=== PATIENT | male | born 1940 | race Caucasian/White ===

== ENCOUNTER → 2020-05-25 | Outpatient (CLI) | payer MEDICARE, OTHER ==
--- NOTE | 2020-05-25 13:52 | XRAY Report ---
PROCEDURE: Shoulder 3 View LT INDICATIONS: L SHOULDER PX TECHNIQUE: 3 views of the shoulder were acquired. COMPARISON: None. FINDINGS: Bones: Mild to moderate acromioclavicular joint and glenohumeral joint osteoarthritic changes are se en. No fractures or dislocations. No suspicious bony lesions. Visualized ribs appear intact. Soft tissues: No suspicious soft tissue calcifications. IMPRESSION: Mild to moderate left shoulder joint osteoarthritis. No fracture or dislocation. Reviewed by: Bry Farr MD on 05/25/2020 1:50 PM PST Approved by: Bry Farr MD on 05/25/2020 1:50 PM PST Station ID: [id number]
== END ==
LOC: DI.N 12:34
PROVIDERS: ATTEND Nurse Practitioner
DX: M19.012 Primary osteoarthritis, left shoulder (principal)

== ENCOUNTER 2020-05-30 20:47 | Outpatient (CLI) | payer MEDICARE, OTHER | END 2020-05-30 20:48 | disposition critical access hospital (66) | LOC: EMS 20:47 | PROVIDERS: ATTEND Surgery | DX: R51.9 Headache, unspecified (principal); R42 Dizziness and giddiness; R03.0 Elevated blood-pressure reading, without diagnosis of hypertension | CPT/HCPCS: A0425; A0429 ==

== ENCOUNTER 2020-05-30 21:43 | Emergency (ER) | payer MEDICARE, OTHER ==
--- NOTE | 2020-05-30 22:26 | ED Physician Documentation ---
History of Present Illness - Stated complaint Stated Complaint: HTN, AUGUST, DIZZY - Chief complaint Chief Complaint: Cardiac - History obtained from History obtained from: Patient, EMS - History of Present Illness Timing: Enter time (19:30), Today Improved by: rest Worsened by: no exacerbating factors - Additonal information Additional information: BIBA. patient c/o generalized headache, lightheadedness and nausea since 7:30 PM tonight. he says "my daughter checked my vitals" and "they were much higher". Asked to specify, he says his blood pressure was high on readings at home, although he says the readings were 110s over 90s. Review of Systems Constitutional: denies: Fever, Chills, Sweats Eyes: denies: Loss of vision, Decreased vision Cardiac: reports: Reviewed and negative Respiratory: reports: Reviewed and negative GI: reports: Nausea. denies: Abdominal Pain, Vomiting Musculoskeletal: denies: Neck pain, Back pain Neurologic: reports: Headache. denies: Generalized weakness, Focal weakness, Numbness PD PAST MEDICAL HISTORY - Past Medical History Past Medical History: Yes Cardiovascular: Atrial fibrillation Respiratory: COPD Neuro: None : Kidney stones HEENT: Other Other Past Medical History: sunus infections - Past Surgical History Past Surgical History: Yes General: Hiatal hernia repair Ortho: Spine surgery HEENT: Tonsil/Adenoidectomy - Present Medications Home Medications: Ambulatory Orders Medication Instructions Recorded Confirmed Calcium Carbonate [Calcium] 600 mg PO DAILY 05/30/20 05/30/20 Diazepam [Valium] 5 mg PO DAILY 05/30/20 05/30/20 Gabapentin [Neurontin] 600 mg PO TID 05/30/20 05/30/20 Methocarbamol [Robaxin-750] 750 mg PO TID 05/30/20 05/30/20 Montelukast [Singulair] 10 mg PO DAILY 05/30/20 05/30/20 Multivitamin 1 tab PO DAILY 05/30/20 05/30/20 Omeprazole Magnesium 20 mg PO DAILY 05/30/20 05/30/20 Rivaroxaban [Xarelto] 20 mg PO DAILY 05/30/20 05/30/20 Simvastatin [Zocor] 40 mg PO DAILY 05/30/20 05/30/20 diphenhydrAMINE [Benadryl] 50 mg PO DAILY 05/30/20 05/30/20 Ondansetron HCl [Zofran] 4 mg PO Q6HR PRN #14 tab 05/31/20 - Allergies Allergies/Adverse Reactions: Allergies Allergy/AdvReac Type Severity Reaction Status Date / Time Sulfa (Sulfonamide Allergy Unknown Verified 05/30/20 21:49 Antibiotics) - Social History Does the pt smoke?: No Smoking Status: Former smoker Does the pt drink ETOH?: Yes ETOH Use: Beer Does the pt have substance abuse?: No - Immunizations Immunizations are current?: Yes PD ED PE NORMAL - Vitals Vital signs reviewed: Yes - General General: Alert and oriented X 3, No acute distress, Well developed/nourished - HEENT HEENT: PERRL, EOMI, Moist mucous membranes - Neck Neck: Supple, no meningeal sign - Cardiac Cardiac: No murmur - Respiratory Respiratory: No respiratory distress, Clear bilaterally - Abdomen Abdomen: Soft, Non tender, Non distended - Derm Derm: Normal color, Warm and dry - Extremities Extremities: No edema - Neuro Neuro: Alert and oriented X 3, senior information security consultant 2-12 intact, No motor deficit, No sensory deficit, Normal speech Eye Opening: Spontaneous Motor: Obeys Commands Verbal: Oriented GCS Score: 15 PD ED PE EXPANDED - Cardiac Cardiac: Regular Rate, Irregularly irregular Results - Vitals Vitals: Oxygen O2 Source Room air - EKG (time done) No standard instances Rate: Rate (enter#) (82) Rhythm: Atrial fibrillation [place]: Normal QRS: Normal Ischemia: Normal ST segments - Labs Labs: Laboratory Tests 05/30/20 05/30/20 05/30/20 22:23 22:23 22:23 WBC 9.9 RBC 4.65 L Hgb 14.2 Hct 43.9 MCV 94.4 H MCH 30.5 MCHC 32.3 RDW 13.5 Plt Count 242 MPV 9.4 Neut # (Auto) 7.5 H Lymph # (Auto) 1.3 L [place] # (Auto) 0.7 Eos # (Auto) 0.4 Baso # (Auto) 0.1 Absolute Nucleated RBC 0.00 Nucleated RBC % 0.0 PT 13.9 H INR 1.3 H Sodium 139 Potassium 4.2 Chloride 102 Carbon Dioxide 26 Anion Gap 11.0 BUN 30 H Creatinine 1.0 Estimated GFR (MDRD) 72 L Glucose 107 H Calcium 8.6 Total Bilirubin 0.4 AST 26 ALT 23 Alkaline Phosphatase 86 Total Protein 6.9 Albumin 3.7 Globulin 3.2 Albumin/Globulin Ratio 1.2 PD MEDICAL DECISION MAKING - ED course Complexity details: reviewed results, re-evaluated patient, considered toña romo, d/w patient ED course: on reevaluation, after IV fluids, IV zofran, and PO tylenol, patient reports feeling much improved. His blood tests are unremarkable and reassuring and his blood pressures were normotensive by end of ED stay Departure - Departure Disposition: 01 Home, Self Care Clinical Impression: Dizziness Headache Qualifiers: Headache type: unspecified Headache chronicity pattern: acute headache Intractability: not intractable Qualified Code(s): R51.9 - Headache, unspecified Hypertension Qualifiers: Hypertension type: essential hypertension Qualified Code(s): I10 - Essential (primary) hypertension Condition: Good Instructions: ED Dizziness UKO, ED Cephalgia Unspecified, ED HTN Established Follow-Up: Star Tejada MD [Primary Care Provider] - Prescriptions: Ondansetron HCl [Zofran] 4 mg PO Q6HR PRN #14 tab PRN Reason: Nausea / Vomiting Discharge Date/Time: 05/31/20 01:33
[2020-05-30 22:28] LABS: BASOPHILS # (AUTO) 0.1 10^3/uL (0.0-0.1); BASOPHILS % (AUTO) 0.5 %; EOSINOPHILS # (AUTO) 0.4 10^3/uL (0.0-0.7); EOSINOPHILS % (AUTO) 3.6 %; HCT - HEMATOCRIT 43.9 % (42.0-52.0); HGB - HEMOGLOBIN 14.2 g/dL (14.0-18.0); LYMPHOCYTES # (AUTO) 1.3 10^3/uL (1.5-3.5); LYMPHOCYTES % (AUTO) 13.2 %; MEAN CORPUSCULAR HEMOGLOBIN 30.5 pg (27.0-31.0); MEAN CORPUSCULAR HGB CONC 32.3 g/dL (32.0-36.0); MEAN CORPUSCULAR VOLUME 94.4 fL (80.0-94.0); MEAN PLATELET VOLUME 9.4 fL (7.4-11.4); MONOCYTES # (AUTO) 0.7 10^3/uL (0.0-1.0); MONOCYTES % (AUTO) 6.7 %; NEUTROPHILS # (AUTO) 7.5 10^3/uL (1.5-6.6); NEUTROPHILS % (AUTO) 75.6 %; PLT - PLATELET COUNT 242 10^3/uL (130-450); RED BLOOD COUNT 4.65 10^6/uL (4.70-6.10); RED CELL DISTRIBUTION WIDTH 13.5 % (12.0-15.0); WHITE BLOOD COUNT 9.9 x10^3/uL (4.8-10.8)
[2020-05-30 22:35] LABS: INR 1.3 (0.8-1.2); PT - PROTHROMBIN TIME 13.9 secs (9.9-12.6)
[2020-05-30 22:41] LABS: ALBUMIN 3.7 g/dL (3.2-5.5); ALBUMIN/GLOBULIN RATIO 1.2 (1.0-2.2); BILIRUBIN,TOTAL 0.4 mg/dL (0.2-1.0); CALCIUM 8.6 mg/dL (8.5-10.3); POTASSIUM 4.2 mmol/L (3.5-5.0); TOTAL PROTEIN 6.9 g/dL (6.7-8.2)
[2020-05-30] MEDS ORDERED: SODIUM CHLORIDE 0.9% 1,000 ML IV STA (22:56)
[2020-05-30] MEDS ORDERED: ONDANSETRON 4 MG/2 ML VIAL IVP STA (22:56)
[2020-05-31 01:33] VITALS: BP 132/68
== END 2020-05-31 01:33 | disposition home or self-care (01) ==
LOC: EDUNIT# → ED 21:43
DX: R42 Dizziness and giddiness (principal); R51.9 Headache, unspecified; R11.0 Nausea; I10 Essential (primary) hypertension; I48.91 Unspecified atrial fibrillation; Z79.01 Long term (current) use of anticoagulants; J44.9 Chronic obstructive pulmonary disease, unspecified; Z87.891 Personal history of nicotine dependence
CPT/HCPCS: 36415; 80053; 85025; 85610; 93005; 96361; 96374; 99284

== ENCOUNTER 2020-06-09 10:44 | Outpatient (CLI) | payer MEDICARE, OTHER ==
[2020-06-09 11:56] VITALS: BP 114/83
--- NOTE | 2020-06-09 11:56 | SLEEP CARE CONSULTATION ---
Information from patient questionnaire entered by Stormy Carroll. I have reviewed and concur with the information entered by Stormy Carroll. This document represents the service I personally performed and the decisions made by me, Marilin Thacker ARNP. History of Present Illness Service Date and Time: 06/09/2020 1044 Reason for Visit: New patient, Previously diagnosed sleep apnea, sleep apnea on CPAP therapy Accompanied by: Spouse Chief Complaint: reports: Snoring, Excessive daytime sleepiness, Observed pauses in breathing, Fatigue Date of Onset: about 6 years Usual bedtime: 9:30 - 10 pm Time it takes to fall asleep: 5-30 minutes Snores at night: Yes Observed to quit breathing while asleep: Yes Sleeps alone due to snoring: No Number of times waking at night: maybe 1 Reasons for waking at night: reports: Bathroom Toss, Turn, or Twitch while sleeping: No Recalls having dreams: No (unsure) Usually gets out of bed at: 7:30-8:30 am Feels refreshed in the morning: Yes (mostly) Morning headache: Yes (sometimes) Sleepy or fatigued during the day: Yes Ever fallen asleep while driving: Yes Takes day naps: Yes Dreams during day naps: No (unsure) Prior sleep studies: Yes Year and Where: [facility] in [place], [place] Additional HPI information: ROXANE MCCAULEY was diagnosed to have unknown, AHI unknown, obstructive sleep apnea-hypopnea syndrome and comes in today with spouse to establish care for his CPAP therapy. He continues to have some snoring nightly and occasionally observed pauses in breathing and daily fatigue. He just moved here locally about a month ago. - Parasomnia Symptoms Ever been unable to move upon waking from sleep: No Walks in sleep: No Talks in sleep: No Ever acted out dreams in sleep: No Ever felt weak in the knees when startled or emotional: No Bothered by creepy, crawly, restless sensations in legs: No Problems with memory or concentration: Yes CPAP Compliance Data - Data Reviewed with Patient Average duration of nightly device use: 6 hr 54 min Compliance rate %: 91 (180 days) Current pressure setting (cmH2O): 8 Humidity settin Average residual AHI: 1.0 Compliance data discussion: He is a 6 year user of the CPAP machine. He is using a nasal cushion mask but would like to try a full face mask and has a prescription for this to get it changed. He is using [employer] for his DME, they are new to him and has not yet received supplies from them. He last time he changed his cushion was within the last month. Subjective Missed days of use due to: reports: other (moving) Patient concerns: reports: dry mouth, nose, throat (dry mouth often). denies: aerophagia, mask discomfort, air blowing in eyes, mask leak noise, condensation in mask/hose, nasal congestion, epistaxis, other Observed to snore while using device: Yes Current pressure setting perceived as: comfortable On therapy, patient: reports: sleeping better, awakening more refreshed, being more awake and alert during the day, more rested overall. denies: drowsiness while driving Initial [place] Sleepiness Scale score: 14 (in 2019) Past Medical History Past Medical History: reports: Arrythmia (Atrial fibrillation), Impotence, GERD, Other (COPD, A-Fib). denies: Hypertension, Diabetes, Anemia, Anxiety, Depression Social History The patient's occupation is a Retired. Patient is and lives in [place]. Have you smoked in the past 12 months: No Cigarettes per day (20/pack): 20 Years of smokin (or more) Quit date: 2008 Smoking Pack Years: 40.0 Alcohol use: Yes Alcohol amount and frequency: 1 drink per week Caffeine use: Yes Caffeine amount and frequency: 2-3 cups a day Family History Family Hx Sleep Apnea: Father: Snoring, Sibling: Snoring Allergies and Home Medications Drug allergies reviewed: Yes (Sulfa, Latex) Home medication list reviewed: Yes Allergy and home medication list: Xarelto Montelukast Methocarbomal Simvastatin Calcium Omeprazole Gabapentin Diazepam Benadryl OTC stool softener OTC laxative 50+ Men Multivitamin Spiriva asmanex azelastine Striverdi Respimat Albuterol Fluticasone Review of Systems Weight gain over past 5 years: 5 Weight loss over past 5 years: unsure Cardiovascular: reports: irregular heart rate or pulse. denies: high blood pressure Respiratory: reports: shortness of breath, wheeze Gastrointestinal: reports: difficulty swallowing (sometimes), nausea (sometimes) Urinary: reports: impotence Neurological: denies: headaches Psychiatric: denies: anxiety, depression Ear/Nose/Throat: reports: sinus problems, dry mouth/throat, tonsillectomy, w isdom teeth removed Musculoskeletal: reports: neck pain, back pain, muscle pain or cramping (leg) Physical Exam Blood Pressure: 114/83 Cuff size: wrist Heart Rate: 75 O2 Saturation: 97 Height: 5 ft 3 in Weight: 175 lb Body Mass Index: 30.9 BMI Classification: Obese Nostrils: patent to airflow Mouth and throat: narrow oropharynx Soft palate: long Uvula visualization: 50% Mallampati Class II Tongue: normal in size Tonsils: absent bilaterally Heart: irregular rhythm Lungs: clear bilaterally Impression and Plan 1. Obstructive Sleep Apnea-Hypopnea Syndrome, unknown, with good treatment compliance and good apnea control. On CPAP therapy, the patient has better sleep quality and is more rested overall. We have requested his sleep study but do not have it to reference during this visit. Patient asked to bring in copy if he has it. We would have to repeat sleep study if unable to obtain a copy. He voiced understanding. He has a script from his previous sleep provider to try a full face mask since he has trouble with mask leaking when sleeping on his side. Mask leaks predominately from when patient sleeps on their side can be reduced by using a CPAP pillow. This and other styles can be purchased online. Patient voiced understanding. Patient is snoring when using his machine. To resolve snore, the CPAP pressure will be changed to 9 cmH20. Patient advised to contact this office if pressure change uncomfortable or if pressure change does not resolve snore. He has also had some mouth dryness. Oral dryness can be reduced by adjusting humidity setting higher or heated hose lower or by adjusting both settings. Patient's apnea severity and rationale for treatment to reduce apnea, improve sleep quality and reduce cardiovascular and cerebrovascular events was reviewed. I also reviewed the benefit of consistent device use of CPAP for arrhythmia and gastric reflux. * Obtain copy of previous sleep study * Continue with previous prescription to try a full face mask * Change auto CPAP pressure to 9 cmH2O to reduce snoring when using machine * Notify me if snoring with mask or feeling that the pressure is too much or too little * Call this office if any problems using CPAP * Return for follow up in 1-2 months, or sooner if concerns arise Counseling Topics: Spare mask Visit Type: In Office Time Spent with Patient (minutes): 32 Provider Statement: I spent 100% of the Face to Face Visit with the patient with greater than 50% spent counseling the patient and coordination of care.
== END 2020-06-09 10:45 | disposition home or self-care (01) ==
LOC: SC 10:44
PROVIDERS: ATTEND Nurse Practitioner Family
DX: G47.33 Obstructive sleep apnea (adult) (pediatric) (principal); E66.9 Obesity, unspecified; Z68.30 Body mass index [BMI] 30.0-30.9, adult
CPT/HCPCS: 99203; G0463; 99212

== ENCOUNTER 2020-09-12 10:22 | Outpatient (CLI) | payer MEDICARE, OTHER ==
[2020-09-12 11:05] LABS: MUDS CUTOFF CONCENTRATIONS CUTOFF CONC BELOW:
[2020-09-12 11:55] LABS: AMPHETAMINE SCREEN,URINE NEGATIVE (NEGATIVE); BARBITURATE SCREEN,UR NEGATIVE (NEGATIVE); BENZODIAZEPINES SCREEN, URINE POSITIVE (NEGATIVE); COCAINE SCREEN URINE NEGATIVE (NEGATIVE); METHADONE SCREEN, URINE NEGATIVE (NEGATIVE); METHAMPHETAMINES SCREEN, URINE NEGATIVE (NEGATIVE); OPIATE SCREEN, URINE NEGATIVE (NEGATIVE); OXYCODONE SCREEN, URINE POSITIVE (NEGATIVE); PROPOXYPHENE SCREEN, URINE NEGATIVE (NEGATIVE); THC CANNABINOID SCREEN, URINE NEGATIVE (NEGATIVE); TRICYCLIC ANTIDEPRESSANT,URINE NEGATIVE (NEGATIVE)
== END 2020-09-12 10:23 | disposition home or self-care (01) ==
LOC: LAB 10:22
PROVIDERS: ATTEND Family Medicine
DX: Z79.899 Other long term (current) drug therapy (principal)
CPT/HCPCS: 80306

== ENCOUNTER 2021-12-20 10:14 | Emergency (ER) | payer MEDICARE, OTHER ==
[2021-12-20 10:34] LABS: BASOPHILS # (AUTO) 0.1 10^3/uL (0.0-0.1); EOSINOPHILS # (AUTO) 0.3 10^3/uL (0.0-0.7); EOSINOPHILS % (AUTO) 4.1 %; HCT - HEMATOCRIT 47.7 % (42.0-52.0); HGB - HEMOGLOBIN 15.9 g/dL (14.0-18.0); LYMPHOCYTES # (AUTO) 1.1 10^3/uL (1.5-3.5); LYMPHOCYTES % (AUTO) 17.3 %; MEAN CORPUSCULAR HEMOGLOBIN 31.6 pg (27.0-31.0); MEAN CORPUSCULAR HGB CONC 33.3 g/dL (32.0-36.0); MEAN CORPUSCULAR VOLUME 94.8 fL (80.0-94.0); MEAN PLATELET VOLUME 9.9 fL (7.4-11.4); MONOCYTES # (AUTO) 0.5 10^3/uL (0.0-1.0); MONOCYTES % (AUTO) 7.9 %; NEUTROPHILS # (AUTO) 4.2 10^3/uL (1.5-6.6); NEUTROPHILS % (AUTO) 69.5 %; PLT - PLATELET COUNT 221 10^3/uL (130-450); RED BLOOD COUNT 5.03 10^6/uL (4.70-6.10); RED CELL DISTRIBUTION WIDTH 13.3 % (12.0-15.0); WHITE BLOOD COUNT 6.1 x10^3/uL (4.8-10.8)
[2021-12-20 10:47] LABS: ALBUMIN 4.3 g/dL (3.2-5.5); ALBUMIN/GLOBULIN RATIO 1.5 (1.0-2.2); BILIRUBIN,TOTAL 0.9 mg/dL (0.2-1.0); CALCIUM 9.2 mg/dL (8.5-10.3); CREATININE 1.3 mg/dL (0.6-1.2); POTASSIUM 4.6 mmol/L (3.5-5.0); TOTAL PROTEIN 7.2 g/dL (6.7-8.2)
[2021-12-20] MEDS ORDERED: KETOROLAC 30 MG/ML VIAL IVP STA (12:56)
[2021-12-20] MEDS ORDERED: HYDROmorphone 0.5 MG/0.5 ML SYRINGE IVP STA ×2 (12:57→14:19)
--- NOTE | 2021-12-20 13:47 | CT Report ---
PROCEDURE: Abdomen/Pelvis WO INDICATIONS: R flank pain TECHNIQUE: Noncontrast 5 mm thick sections acquired from the diaphragms to the symphysis. 5 mm coronal and sagi ttal reformats were then performed. For radiation dose reduction, the following was used: automated exposure control, adjustment of mA and/or kV according to patient size. COMPARISON: CT chest dated 11/29/2021. FINDINGS: Image quality: Diagnostic. ABDOMEN: Lung bases: Stable subcentimeter left lower lobe pulmonary nodule. Bibasilar atelectasis. Heart size is normal. Atherosclerotic calcifications of the coronary arteries. Solid organs: Liver and spleen are normal in size. Gallbladder is unremarkable. Pancreas is normal in contours. No peripancreatic inflammation. No adrenal nodules. Kidneys are normal in size, witho ut hydronephrosis or nephrolithiasis. Bilateral ureters are normal in course and caliber. Peritoneum and bowel: Unenhanced bowel loops demonstrate normal wall thickness and caliber. No free fluid or air. Scattered colonic diverticulosis without acute diverticulitis. Nodes and vessels: No retroperitoneal or mesenteric adenopathy by size criteria. Aorta and inferior vena cava are normal in caliber. Scattered atherosclerotic calcifications. Miscellaneous: Fat-containing umbilical hernia without acute inflammation. PELVIS: Genitourinary: Bladder wall thickness is normal. Moderately distended urinary bladder. Miscellaneous: No inguinal hernias or adenopathy. Penile prosthesis is visualized. Bones: No suspicious bony lesions. No acute vertebral body compression fractures. Postsurgical hilda nges from prior lumbar fusion from L2 through S1. IMPRESSION: 1. CT abdomen and pelvis without acute abnormalities. Specifically, no evidence for renal stones or h ydronephrosis. The appendix is not definitively visualized. However, no secondary findings for acute inflammation noted in the right lower quadrant. 2. Atherosclerosis. 3. Colonic diverticulosis without acute diverticulitis. 4. Redemonstration of subcentimeter left lower lobe pulmonary nodule. Recommend follow-up CT in 12 mo nths to document continued stability. Other chronic findings as above Reviewed by: Cesar Gómez MD on 12/20/2021 1:46 PM PDT Approved by: Cesar Gómez MD on 12/20/2021 1:46 PM PDT Station ID: [id number]
--- NOTE | 2021-12-20 14:11 | ED Physician Documentation ---
History of Present Illness - Stated complaint Stated Complaint: MALE /BACK PX - Chief complaint Chief Complaint: Back Pain - History obtained from History obtained from: Patient, Family - Additonal information Additional information: The patient comes to the emergency department with chief complaint of right- sided back pain that started several days ago. He states it hurts a lot to move and he is concerned that he may have a kidney stone again. He denies any direct trauma. He states he has not been doing anything that seems unusual. He normally works in his garden a lot, but does not feel that he has done anything unusual to his back. No other complaints at this time. No loss of bowel or bladder control. No numbness or tingling in his legs. No dysuria or hematuria. He does have a history of back surgery with titanium plates in his lumbar spine, but is very active. Review of Systems Ten Systems: 10 systems reviewed and negative Constitutional: reports: Reviewed and negative Eyes: reports: Reviewed and negative Ears: reports: Reviewed and negative Nose: reports: Reviewed and negative Throat: reports: Reviewed and negative Cardiac: reports: Reviewed and negative Respiratory: reports: Reviewed and negative GI: reports: Reviewed and negative : reports: Reviewed and negative Skin: reports: Reviewed and negative Musculoskeletal: reports: Back pain Neurologic: reports: Reviewed and negative Psychiatric: reports: Reviewed and negative Endocrine: reports: Reviewed and negative Immunocompromised: reports: Reviewed and negative PD PAST MEDICAL HISTORY - Past Medical History Past Medical History: Yes Cardiovascular: Atrial fibrillation Respiratory: COPD Neuro: None : Kidney stones HEENT: Other - Past Surgical History Past Surgical History: Yes General: Hiatal hernia repair Ortho: Spine surgery HEENT: Tonsil/Adenoidectomy - Present Medications Home Medications: Ambulatory Orders Medication Instructions Recorded Confirmed Calcium Carbonate [Calcium] 600 mg PO DAILY 05/30/20 05/30/20 Diazepam [Valium] 5 mg PO DAILY 05/30/20 05/30/20 Gabapentin [Neurontin] 600 mg PO TID 05/30/20 05/30/20 Montelukast [Singulair] 10 mg PO DAILY 05/30/20 05/30/20 Multivitamin 1 tab PO DAILY 05/30/20 05/30/20 Omeprazole Magnesium 20 mg PO DAILY 05/30/20 05/30/20 Rivaroxaban [Xarelto] 20 mg PO DAILY 05/30/20 05/30/20 Simvastatin [Zocor] 40 mg PO DAILY 05/30/20 05/30/20 diphenhydrAMINE [Benadryl] 50 mg PO DAILY 05/30/20 05/30/20 methocarbamoL [Robaxin-750] 750 mg PO TID 05/30/20 05/30/20 ondansetron HCL [Zofran] 4 mg PO Q6HR PRN #14 tab 05/31/20 Cyclobenzaprine [Flexeril] 10 mg PO TID PRN #20 tablet 12/20/21 HYDROcod/ACETAM 5/325 [[place]bo[place] 5/325] 1 - 2 tablet PO Q6H PRN #14 tablet 12/20/21 - Allergies Allergies/Adverse Reactions: Allergies Allergy/AdvReac Type Severity Reaction Status Date / Time Sulfa (Sulfonamide Allergy Unknown Verified 12/20/21 10:20 Antibiotics) - Social History Does the pt smoke?: No Smoking Status: Never smoker Does the pt drink ETOH?: Yes Does the pt have substance abuse?: No - Immunizations Immunizations are current?: Yes - POLST Patient has POLST: No PD ED PE NORMAL - Vitals Vital signs reviewed: Yes - General General: Alert and oriented X 3, No acute distress, Well developed/nourished - HEENT HEENT: Atraumatic, PERRL, EOMI, Moist mucous membranes - Neck Neck: Supple, no meningeal sign - Cardiac Cardiac: RRR, No murmur - Respiratory Respiratory: No respiratory distress, Clear bilaterally - Abdomen Abdomen: Soft, Non tender, Non distended - Back Back: No CVA TTP, No spinal TTP, Other (Tenderness palpation right lumbar paraspinal musculature. Tenderness decreases with increasingly lateral location.) - Derm Derm: Normal color, Warm and dry, No rash - Extremities Extremities: No deformity - Neuro Neuro: Alert and oriented X 3 - Psych Psych: Normal mood, Normal affect Results - Vitals Vitals: Vital Signs - 24 hr 12/20/21 10:16 Temperature 36.2 C L Heart Rate 75 Respiratory 18 Rate Blood Pressure 142/62 H O2 Saturation 97 Oxygen O2 Source Room air - Labs Labs: Laboratory Tests 12/20/21 12/20/21 10:28 10:28 WBC 6.1 RBC 5.03 Hgb 15.9 Hct 47.7 MCV 94.8 H MCH 31.6 H MCHC 33.3 RDW 13.3 Plt Count 221 MPV 9.9 Neut # (Auto) 4.2 Lymph # (Auto) 1.1 L [place] # (Auto) 0.5 Eos # (Auto) 0.3 Baso # (Auto) 0.1 Absolute Nucleated RBC 0.00 Nucleated RBC % 0.0 Sodium 142 Potassium 4.6 Chloride 105 Carbon Dioxide 29 Anion Gap 8.0 BUN 27 H Creatinine 1.3 H Estimated GFR (MDRD) 53 L Glucose 154 H Calcium 9.2 Total Bilirubin 0.9 AST 25 ALT 21 Alkaline Phosphatase 89 Total Protein 7.2 Albumin 4.3 Globulin 2.9 Albumin/Globulin Ratio 1.5 Lipase 28 - Rads (name of study) CT abdomen and pelvis Radiology: Final report received, EMP read indepedently, See rad report (No acute findings) PD MEDICAL DECISION MAKING - ED course Complexity details: reviewed results, re-evaluated patient, considered differential, d/w patient, d/w family ED course: Patient was treated symptomatically with Toradol and Dilaudid. His CT scan was unremarkable for acute findings, and specifically negative for kidney stone. We discussed that his back pain is more likely musculoskeletal in nature. We have discussed symptomatic management at home and the usual indications for return. Departure - Departure Disposition: 01 Home, Self Care Clinical Impression: Musculoskeletal back pain Condition: Stable Instructions: ED Spasm Back No Trauma, ED Neck Back Pain General Prescriptions: Cyclobenzaprine [Flexeril] 10 mg PO TID PRN #20 tablet PRN Reason: Spasms HYDROcod/ACETAM 5/325 [[place]bo[place] 5/325] 1 - 2 tablet PO Q6H PRN #14 tablet PRN Reason: Pain Comments: Your CT scan does not show any evidence of kidney stones. You have existing low back arthritis and surgical changes but no evidence of a serious condition. Given your muscle tenderness and Worse pain with movement, your pain seems to be more consistent with musculoskeletal cause than with an internal cause. You may take the medications prescribed as needed, as well as ibuprofen. Please follow- up with your primary care physician if you are not feeling better in the next 1 to 2 weeks. Your prescriptions have been electronically transmitted to [facility] pharmacy in [place].
[2021-12-20 14:23] VITALS: BP 121/75
== END 2021-12-20 14:36 | disposition home or self-care (01) ==
LOC: ED 10:14
DX: M54.50 Low back pain, unspecified (principal)
CPT/HCPCS: 36415; 74176; 80053; 83690; 85025; 96374; 96375; 96376; 99283; 99284; J1170

== ENCOUNTER 2022-03-08 17:36 | Emergency (ER) | payer MEDICARE, OTHER ==
[2022-03-08 17:48] VITALS: BP 134/71
[2022-03-08] MEDS ORDERED: ACETAMINOPHEN 500 MG TABLET PO STA (17:58)
--- NOTE | 2022-03-08 17:59 | ED Physician Documentation ---
PD HPI HEAD INJURY - Stated complaint Stated Complaint: FALL - Chief complaint Chief Complaint: Trauma Hd/Nk - History obtained from History obtained from: Patient, Family - Additional information Additional information: 81-year-old gentleman on Eliquis for atrial fibrillation had a piece of furniture part way and couple of pounds fall in the top of his head about an hour ago while he was working outside. No loss of consciousness. He has minimal headache. No other injuries. He is here today with his . Review of Systems Constitutional: reports: Reviewed and negative Throat: reports: Reviewed and negative Cardiac: reports: Reviewed and negative PD PAST MEDICAL HISTORY - Past Medical History Cardiovascular: Atrial fibrillation Respiratory: COPD Neuro: None : Kidney stones HEENT: Other - Past Surgical History Past Surgical History: Yes General: Hiatal hernia repair Ortho: Spine surgery HEENT: Tonsil/Adenoidectomy - Present Medications Home Medications: Ambulatory Orders Medication Instructions Recorded Confirmed Calcium Carbonate [Calcium] 600 mg PO DAILY 05/30/20 05/30/20 Diazepam [Valium] 5 mg PO DAILY 05/30/20 05/30/20 Gabapentin [Neurontin] 600 mg PO TID 05/30/20 05/30/20 Montelukast [Singulair] 10 mg PO DAILY 05/30/20 05/30/20 Multivitamin 1 tab PO DAILY 05/30/20 05/30/20 Omeprazole Magnesium 20 mg PO DAILY 05/30/20 05/30/20 Rivaroxaban [Xarelto] 20 mg PO DAILY 05/30/20 05/30/20 Simvastatin [Zocor] 40 mg PO DAILY 05/30/20 05/30/20 diphenhydrAMINE [Benadryl] 50 mg PO DAILY 05/30/20 05/30/20 methocarbamoL [Robaxin-750] 750 mg PO TID 05/30/20 05/30/20 ondansetron HCL [Zofran] 4 mg PO Q6HR PRN #14 tab 05/31/20 Cyclobenzaprine [Flexeril] 10 mg PO TID PRN #20 tablet 12/20/21 HYDROcod/ACETAM 5/325 [[place] 5/325] 1 - 2 tablet PO Q6H PRN #14 tablet 12/20/21 - Allergies Allergies/Adverse Reactions: Allergies Allergy/AdvReac Type Severity Reaction Status Date / Time Sulfa (Sulfonamide Allergy Unknown Verified 03/08/22 17:48 Antibiotics) - Social History Does the pt smoke?: No Smoking Status: Never smoker Does the pt drink ETOH?: Yes Does the pt have substance abuse?: No - Immunizations Immunizations are current?: Yes - POLST Patient has POLST: No PD ED PE NORMAL - Vitals Vital signs reviewed: Yes - General General: Alert and oriented X 3, No acute distress - HEENT HEENT: PERRL, EOMI, Other (There is a very small hematoma pretty close to the vertex of his scalp) - Neck Neck: No bony TTP - Neuro Neuro: Alert and oriented X 3, recreational leader 2-12 intact, No motor deficit, No sensory deficit, Normal speech Eye Opening: Spontaneous Motor: Obeys Commands Verbal: Oriented GCS Score: 15 Results - Vitals Vitals: Vital Signs - 24 hr 03/08/22 17:42 Temperature 36.8 C Heart Rate 85 Respiratory 18 Rate Blood Pressure 134/71 H O2 Saturation 97 Oxygen O2 Source Room air - Rads (name of study) CT of the head is unremarkable Radiology: EMP read contemporaneously Departure - Departure Disposition: 01 Home, Self Care Clinical Impression: Adequate anticoagulation on anticoagulant therapy Scalp contusion Qualifiers: Encounter type: initial encounter Qualified Code(s): S00.03XA - Contusion of scalp, initial encounter Condition: Good Record reviewed to determine appropriate education?: Yes Instructions: ED Head Injury Closed
--- NOTE | 2022-03-08 18:25 | CT Report ---
PROCEDURE: HEAD WO INDICATIONS: Head injury TECHNIQUE: Noncontrast 4.5 mm thick angled axial sections acquired from the foramen magnum to the vertex. For r adiation dose reduction, the following was used: automated exposure control, adjustment of mA and/or kV according to patient size. COMPARISON: None. FINDINGS: Image quality: Excellent. CSF spaces: Basal cisterns are patent. No extra-axial fluid collections. Ventricles are normal in size and shape. Brain: No midline shift. No intracranial masses or hemorrhage. Soriano-white matter interface is norm al. Skull and face: Calvarium and visualized facial bones are intact, without suspicious lesions. Sinuses: Visualized sinuses and mastoids are clear. IMPRESSION: No acute intracranial finding. Reviewed by: Clark Kemp MD on 03/08/2022 6:24 PM PDT Approved by: Clark Kemp MD on 03/08/2022 6:24 PM PDT Station ID: [id number]
== END 2022-03-08 18:43 | disposition home or self-care (01) ==
LOC: ED 17:36
DX: S00.03XA Contusion of scalp, initial encounter (principal); W20.8XXA Other cause of strike by thrown, projected or falling object, initial encounter; I48.91 Unspecified atrial fibrillation; Z79.01 Long term (current) use of anticoagulants; J44.9 Chronic obstructive pulmonary disease, unspecified
CPT/HCPCS: 70450; 99282; 99284; A9270

== ENCOUNTER 2022-07-24 11:39 | Emergency (ER) | payer MEDICARE, OTHER ==
--- NOTE | 2022-07-24 12:25 | XRAY Report ---
PROCEDURE: Chest 1 View X-Ray INDICATIONS: Chest pain TECHNIQUE: One view of the chest was acquired. COMPARISON: CT chest dated 11/29/2021. FINDINGS: Surgical changes and devices: Fixation hardware in visualized lumbar spine is seen. Lungs and pleura: No pleural effusions or pneumothorax. Lungs are clear. Mediastinum: Mediastinal contours appear normal. Heart size is normal. Bones and chest wall: No suspicious bony lesions. Overlying soft tissues appear unremarkable. IMPRESSION: No acute cardiopulmonary pathology. Reviewed by: Bry Farr MD on 07/24/2022 12:24 PM PST Approved by: Bry Farr MD on 07/24/2022 12:24 PM PST Station ID: [id number]
[2022-07-24 12:39] LABS: BASOPHILS # (AUTO) 0.1 10^3/uL (0.0-0.1); BASOPHILS % (AUTO) 0.3 %; EOSINOPHILS % (AUTO) 0.3 %; HCT - HEMATOCRIT 46.4 % (42.0-52.0); LYMPHOCYTES % (AUTO) 6.5 %; MEAN CORPUSCULAR HEMOGLOBIN 30.7 pg (27.0-31.0); MEAN CORPUSCULAR HGB CONC 32.3 g/dL (32.0-36.0); MEAN CORPUSCULAR VOLUME 95.1 fL (80.0-94.0); MEAN PLATELET VOLUME 9.5 fL (7.4-11.4); MONOCYTES # (AUTO) 0.8 10^3/uL (0.0-1.0); MONOCYTES % (AUTO) 5.3 %; NEUTROPHILS # (AUTO) 13.4 10^3/uL (1.5-6.6); NEUTROPHILS % (AUTO) 87.4 %; PLT - PLATELET COUNT 233 10^3/uL (130-450); RED BLOOD COUNT 4.88 10^6/uL (4.70-6.10); RED CELL DISTRIBUTION WIDTH 13.5 % (12.0-15.0); WHITE BLOOD COUNT 15.4 x10^3/uL (4.8-10.8)
[2022-07-24 12:57] LABS: ALBUMIN 3.8 g/dL (3.2-5.5); ALBUMIN/GLOBULIN RATIO 1.1 (1.0-2.2); BILIRUBIN,TOTAL 0.6 mg/dL (0.2-1.0); CALCIUM 8.5 mg/dL (8.5-10.3); CREATININE 1.1 mg/dL (0.6-1.2); POTASSIUM 4.3 mmol/L (3.5-5.0); TOTAL PROTEIN 7.2 g/dL (6.7-8.2)
[2022-07-24] MEDS ORDERED: AMOX/CLAV 875 MG/125 MG TABLET PO STA (14:01)
--- NOTE | 2022-07-24 14:03 | ED Physician Documentation ---
History of Present Illness - Stated complaint Stated Complaint: SOA - Chief complaint Chief Complaint: Resp - History obtained from History obtained from: Patient, Family - Additonal information Additional information: 81-year-old gentleman with history of COPD and A-fib has been fatigued all week, but today started having shaking chills and fever up to 102. He has chronic bronchitis and wonders if he might have pneumonia. He denies rash, urinary complaints, pedal edema or calf pain, abdominal pain or sore throat. He checked himself for COVID this morning and it was negative at home. He is here with his daughter. PD PAST MEDICAL HISTORY - Past Medical History Cardiovascular: Atrial fibrillation Respiratory: COPD Neuro: None : Kidney stones HEENT: Other - Past Surgical History Past Surgical History: Yes General: Hiatal hernia repair Ortho: Spine surgery HEENT: Tonsil/Adenoidectomy - Present Medications Home Medications: Ambulatory Orders Medication Instructions Recorded Confirmed Calcium Carbonate [Calcium] 600 mg PO DAILY 05/30/20 05/30/20 Diazepam [Valium] 5 mg PO DAILY 05/30/20 05/30/20 Gabapentin [Neurontin] 600 mg PO TID 05/30/20 05/30/20 Montelukast [Singulair] 10 mg PO DAILY 05/30/20 05/30/20 Multivitamin 1 tab PO DAILY 05/30/20 05/30/20 Omeprazole Magnesium 20 mg PO DAILY 05/30/20 05/30/20 Rivaroxaban [Xarelto] 20 mg PO DAILY 05/30/20 05/30/20 Simvastatin [Zocor] 40 mg PO DAILY 05/30/20 05/30/20 diphenhydrAMINE [Benadryl] 50 mg PO DAILY 05/30/20 05/30/20 methocarbamoL [Robaxin-750] 750 mg PO TID 05/30/20 05/30/20 ondansetron HCL [Zofran] 4 mg PO Q6HR PRN #14 tab 05/31/20 Cyclobenzaprine [Flexeril] 10 mg PO TID PRN #20 tablet 12/20/21 HYDROcod/ACETAM 5/325 [[place] 5/325] 1 - 2 tablet PO Q6H PRN #14 tablet 12/20/21 Amox/Clav 875/125 [Augmentin] 1 each PO Q12H #20 tablet 07/24/22 - Allergies Allergies/Adverse Reactions: Allergies Allergy/AdvReac Type Severity Reaction Status Date / Time latex Allergy Unknown Verified 07/24/22 11:57 Sulfa (Sulfonamide Allergy Unknown Verified 03/08/22 17:48 Antibiotics) - Social History Does the pt smoke?: No Smoking Status: Never smoker Does the pt drink ETOH?: Yes Does the pt have substance abuse?: No - Immunizations Immunizations are current?: Yes - POLST Patient has POLST: No PD ED PE NORMAL - Vitals Vital signs reviewed: Yes - General General: Alert and oriented X 3, No acute distress - HEENT HEENT: PERRL, Pharynx benign, Dentition benign - Neck Neck: Supple, no meningeal sign, No bony TTP - Cardiac Cardiac: RRR, No murmur - Respiratory Respiratory: Other (Mild expiratory wheezes, nonlabored, no respiratory distress.) - Abdomen Abdomen: Non tender - Back Back: No CVA TTP, No spinal TTP - Derm Derm: Normal color, Warm and dry - Extremities Extremities: No edema, No calf tenderness / cord - Neuro Neuro: Alert and oriented X 3, Normal speech Results - Vitals Vitals: Vital Signs - 24 hr 07/24/22 11:51 Heart Rate 74 Respiratory 24 Rate Blood Pressure 122/59 L O2 Saturation 95 Oxygen O2 Source Room air - Labs Labs: Laboratory Tests 07/24/22 07/24/22 07/24/22 12:35 12:35 12:35 WBC 15.4 H RBC 4.88 Hgb 15.0 Hct 46.4 MCV 95.1 H MCH 30.7 MCHC 32.3 RDW 13.5 Plt Count 233 MPV 9.5 Neut # (Auto) 13.4 H Lymph # (Auto) 1.0 L [place] # (Auto) 0.8 Eos # (Auto) 0.0 Baso # (Auto) 0.1 Absolute Nucleated RBC 0.00 Nucleated RBC % 0.0 Sodium 138 Potassium 4.3 Chloride 99 L Carbon Dioxide 27 Anion Gap 12.0 BUN 23 H Creatinine 1.1 Estimated GFR (MDRD) 64 L Glucose 93 Calcium 8.5 Total Bilirubin 0.6 AST 25 ALT 22 Alkaline Phosphatase 82 Troponin I High Sens 6.0 Total Protein 7.2 Albumin 3.8 Globulin 3.4 Albumin/Globulin Ratio 1.1 Lipase 27 - Rads (name of study) Single view chest x-ray is unremarkable Radiology: Final report received, EMP read indepedently PD Medical Decision Making - ED course ED course: 81-year-old gentleman with probably a COPD exacerbation with fever. Other causes of infection such as intra-abdominal issue, UTI were screened by history without pertinent positive historical findings suggestive of any of those. He is having some ongoing upper chest pressure but that is not new with negative biomarkers. Departure - Departure Disposition: 01 Home, Self Care Clinical Impression: Bronchitis Condition: Good Record reviewed to determine appropriate education?: Yes Instructions: ED COPD Flare Prescriptions: Amox/Clav 875/125 [Augmentin] 1 each PO Q12H #20 tablet Comments: Return or follow-up with your doctor in 2 days if not better, return for new or worsening symptoms.
[2022-07-24 14:12] VITALS: BP 101/57
== END 2022-07-24 14:22 | disposition home or self-care (01) ==
LOC: ED 11:39
DX: J40 Bronchitis, not specified as acute or chronic (principal); I48.91 Unspecified atrial fibrillation; Z79.01 Long term (current) use of anticoagulants
CPT/HCPCS: 36415; 71045; 80053; 83690; 84484; 85025; 93005; 99284; A9270

== ENCOUNTER 2022-08-01 08:12 | Outpatient (CLI) | payer MEDICARE, OTHER ==
[2022-08-01 08:30] LABS: BASOPHILS # (AUTO) 0.1 10^3/uL (0.0-0.1); BASOPHILS % (AUTO) 0.9 %; EOSINOPHILS # (AUTO) 0.4 10^3/uL (0.0-0.7); EOSINOPHILS % (AUTO) 5.3 %; HCT - HEMATOCRIT 44.7 % (42.0-52.0); HGB - HEMOGLOBIN 14.6 g/dL (14.0-18.0); LYMPHOCYTES # (AUTO) 1.4 10^3/uL (1.5-3.5); LYMPHOCYTES % (AUTO) 16.7 %; MEAN CORPUSCULAR HGB CONC 32.7 g/dL (32.0-36.0); MEAN CORPUSCULAR VOLUME 94.9 fL (80.0-94.0); MEAN PLATELET VOLUME 9.4 fL (7.4-11.4); MONOCYTES # (AUTO) 0.6 10^3/uL (0.0-1.0); MONOCYTES % (AUTO) 7.9 %; NEUTROPHILS # (AUTO) 5.6 10^3/uL (1.5-6.6); NEUTROPHILS % (AUTO) 68.8 %; PLT - PLATELET COUNT 260 10^3/uL (130-450); RED BLOOD COUNT 4.71 10^6/uL (4.70-6.10); RED CELL DISTRIBUTION WIDTH 13.3 % (12.0-15.0); WHITE BLOOD COUNT 8.1 x10^3/uL (4.8-10.8)
[2022-08-01 08:43] LABS: ALBUMIN 3.8 g/dL (3.2-5.5); ALBUMIN/GLOBULIN RATIO 1.2 (1.0-2.2); ALKALINE PHOSPHATASE 75 IU/L (42-121); ALT ALANINE AMINOTRANSFERASE 25 IU/L (10-60); AST ASPARTATE AMINOTRANSFERASE 25 IU/L (10-42); BILIRUBIN,TOTAL 0.6 mg/dL (0.2-1.0); BUN - BLOOD UREA NITROGEN 19 mg/dL (6-20); CALCIUM 9.2 mg/dL (8.5-10.3); CARBON DIOXIDE - CO2 26 mmol/L (21-32); CHLORIDE 109 mmol/L (101-111); CHOL/HDL RATIO 3.4 (<5.0); CHOLESTEROL 143 mg/dL; CREATININE 1.2 mg/dL (0.6-1.2); GFR - MDRD 58 (>89); GLUCOSE 107 mg/dL (70-100); HDL CHOLESTEROL 42 mg/dL; LDL CHOLESTEROL,CALCULATED 80 mg/dL; LDL/HDL RATIO 1.9 (<3.6); POTASSIUM 4.1 mmol/L (3.5-5.0); SODIUM 144 mmol/L (135-145); TOTAL PROTEIN 7.1 g/dL (6.7-8.2); TRIGLYCERIDES 106 mg/dL; VLDL CHOLESTEROL 21 mg/dL
[2022-08-01 08:55] LABS: THYROID STIMULATING HORMONE 1.86 uIU/mL (0.34-5.60)
[2022-08-01 11:25] LABS: ESTIMATED AVERAGE GLUCOSE 134 mg/dL (70-100); HEMOGLOBIN A1c% 6.3 % (4.27-6.07)
== END 2022-08-01 08:13 | disposition home or self-care (01) ==
LOC: LAB 08:12
PROVIDERS: ATTEND Internal Medicine Cardiovascular Disease
DX: I48.91 Unspecified atrial fibrillation (principal); E78.5 Hyperlipidemia, unspecified; Z13.1 Encounter for screening for diabetes mellitus; Z86.39 Personal history of other endocrine, nutritional and metabolic disease; E83.42 Hypomagnesemia
CPT/HCPCS: 36415; 80053; 80061; 83036; 83721; 83735; 84443; 85025

== ENCOUNTER 2023-01-29 11:16 | Emergency (ER) | payer MEDICARE, OTHER ==
[2023-01-29 11:30] VITALS: BP 122/63; O2SAT 94
--- OUTSIDE RECORDS SUMMARY | 2023-01-29 12:01 | EXTERNAL MEDICAL SUMMARY RPT | Continuity of Care Document ---
Author Name Unknown Address [address] [phone] Phone Organization [facility] Address [address] [phone] Phone Results/Labs test date facility value unit notes
--- NOTE | 2023-01-29 13:22 | Ultrasound Report ---
PROCEDURE: Duplex Ext Veins Right INDICATIONS: right calf pain/swelling TECHNIQUE: Real-time imaging, as well as color and pulse Doppler interrogation, were performed of the lower extr emity deep veins from the inguinal ligament to the popliteal fossa. Attempted visualization of the ca lf veins was performed. COMPARISON: None. FINDINGS: The deep veins are normally compressible, and free of intraluminal thrombus. Color and pu lse Doppler demonstrate normal phasic intraluminal flow. There is normal augmentation response to di stal compression maneuver. IMPRESSION: No deep venous thrombosis of the visualized lower extremity. Reviewed by: Dani Cedillo on 01/29/2023 1:21 PM PDT Approved by: Dani Cedillo on 01/29/2023 1:21 PM PDT Station ID: [id number]
--- NOTE | 2023-01-29 13:43 | ED Physician Documentation ---
PD HPI LOWER EXT INJURY - Stated complaint Stated Complaint: RT KNEE SWELLING/PX - Chief complaint Chief Complaint: Ext Problem - History obtained from History obtained from: Patient - History of Present Illness PD HPI LOW EXT INJURY LOCATION: Right, Knee Type of injury: No: Fall, Twist, Blunt / blow, Penetrating / stab / GSW, Laceration, Puncture wound, Foreign body, Crush, Burn, Other Where injury occurred: Home PD PAST MEDICAL HISTORY - Past Medical History Cardiovascular: Atrial fibrillation Respiratory: COPD Neuro: None : Kidney stones HEENT: Other - Past Surgical History Past Surgical History: Yes General: Hiatal hernia repair Ortho: Spine surgery HEENT: Tonsil/Adenoidectomy - Present Medications Home Medications: Ambulatory Orders Medication Instructions Recorded Confirmed Calcium Carbonate [Calcium] 600 mg PO DAILY 05/30/20 05/30/20 Diazepam [Valium] 5 mg PO DAILY 05/30/20 05/30/20 Gabapentin [Neurontin] 600 mg PO TID 05/30/20 05/30/20 Montelukast [Singulair] 10 mg PO DAILY 05/30/20 05/30/20 Multivitamin 1 tab PO DAILY 05/30/20 05/30/20 Omeprazole Magnesium 20 mg PO DAILY 05/30/20 05/30/20 Rivaroxaban [Xarelto] 20 mg PO DAILY 05/30/20 05/30/20 Simvastatin [Zocor] 40 mg PO DAILY 05/30/20 05/30/20 diphenhydrAMINE [Benadryl] 50 mg PO DAILY 05/30/20 05/30/20 methocarbamoL [Robaxin-750] 750 mg PO TID 05/30/20 05/30/20 ondansetron HCL [Zofran] 4 mg PO Q6HR PRN #14 tab 05/31/20 Cyclobenzaprine [Flexeril] 10 mg PO TID PRN #20 tablet 12/20/21 HYDROcod/ACETAM 5/325 [[place] 5/325] 1 - 2 tablet PO Q6H PRN #14 tablet 12/20/21 Amox/Clav 875/125 [Augmentin] 1 each PO Q12H #20 tablet 07/24/22 - Allergies Allergies/Adverse Reactions: Allergies Allergy/AdvReac Type Severity Reaction Status Date / Time latex Allergy Unknown Verified 01/29/23 11:24 Sulfa (Sulfonamide Allergy Unknown Verified 01/29/23 11:24 Antibiotics) - Social History Does the pt smoke?: No Smoking Status: Never smoker Does the pt drink ETOH?: Yes Does the pt have substance abuse?: No - Immunizations Immunizations are current?: Yes - POLST Patient has POLST: No PD ED PE NORMAL - Vitals Vital signs reviewed: Yes - General General: Alert and oriented X 3, No acute distress, Well developed/nourished - Respiratory Respiratory: No respiratory distress, Clear bilaterally - Abdomen Abdomen: Normal bowel sounds, Non tender - Neuro Neuro: No motor deficit, No sensory deficit (purple mildly tender spotsleftl.) Results - Vitals Vitals: Vital Signs - 24 hr 01/29/23 11:24 Temperature 36.5 C Heart Rate 65 Respiratory 18 Rate Blood Pressure 122/63 O2 Saturation 94 Oxygen O2 Source Room air - Rads (name of study) duplex US Relevant Findings:: Prelim report reviewed, Other (US Tech - no DVT) Departure - Departure Disposition: 01 Home, Self Care Clinical Impression: Strain of knee and leg, right Qualifiers: Encounter type: initial encounter Qualified Code(s): S86.911A - Strain of unspecified muscle(s) and tendon(s) at lower leg level, right leg, initial encounter Condition: Stable Record reviewed to determine appropriate education?: Yes Follow-Up: Chevy Nazario MD [Primary Care Provider] - Comments: Your ultrasound is negative for blood clots. On exam I do not get the sense of this being a meniscal/cartilage or the main ligaments of the knee such as the collaterals or cruciates. It sounds more likely a strain of some of the muscles around the knee such as the hamstring. We can try to help this with the hinged knee brace to support some of the muscles and ligaments. Use it when up and around for the next 1-1 and half weeks. Tylenol every 4-6 hours if needed for pains. Continue your other usual medicines. Follow-up with your primary care if not improved over the next 7 to 10 days. Forms: PCP List Discharge Date/Time: 01/29/23 14:50
== END 2023-01-29 14:50 | disposition home or self-care (01) ==
LOC: ED 11:16
DX: S86.911A Strain of unspecified muscle(s) and tendon(s) at lower leg level, right leg, initial encounter (principal); X58.XXXA Exposure to other specified factors, initial encounter
CPT/HCPCS: 99283; 99284

== ENCOUNTER 2023-03-18 13:30 | Outpatient (CLI) | payer MEDICARE, OTHER ==
--- NOTE | 2023-03-18 20:36 | XRAY Report ---
PROCEDURE: Lumbar Spine 2 View INDICATIONS: LOW BACK PAIN TECHNIQUE: 3 view(s) of the lumbar spine were acquired. COMPARISON: None. FINDINGS: Bones: Advanced decreased osseous mineralization present. Moderate to fecal debris in the right colo n. Vertebral body height and alignment is maintained. Instrumented interbody fusion is noted from L2 through S1. L1 wedge-shaped anterior compression fracture without retropulsed fracture fragment. No e vidence of hardware failure or loosening. Soft tissues: Atherosclerotic calcification of the abdominal aorta without evidence of aneurysm. IMPRESSION: Instrumented discectomy and fusion at L2-S1. No evidence of hardware failure or loosening. Osteopenic L1 compression fracture without significant retropulsed fracture fragment Reviewed by: Sudhir Kimble MD on 03/18/2023 7:34 PM [facility] Approved by: Sudhir Kimble MD on 03/18/2023 7:34 PM [facility]ISE Station ID: [id number]
== END 2023-03-18 13:31 | disposition home or self-care (01) ==
LOC: DI 13:30
PROVIDERS: ATTEND Internal Medicine
DX: M48.56XA Collapsed vertebra, not elsewhere classified, lumbar region, initial encounter for fracture (principal); M85.88 Other specified disorders of bone density and structure, other site; Z98.1 Arthrodesis status

== ENCOUNTER 2023-05-14 16:08 | Emergency (ER) | payer MEDICARE, OTHER ==
[2023-05-14 16:36] VITALS: O2SAT 96
[2023-05-14] MEDS ORDERED: BUFFERED LIDOCAINE 10 ML SYRINGE SUBQ STA (18:28)
--- NOTE | 2023-05-14 18:36 | ED Physician Documentation ---
History of Present Illness - Stated complaint Stated Complaint: STAPLE IN R FINGER - Chief complaint Chief Complaint: Trauma Ext - History obtained from History obtained from: Patient, Family - History of Present Illness Timing: Today Pain level max: 5 Pain level now: 5 - Additonal information Additional information: 82-year-old male presents to the emergency department with a stable to the right fifth digit, palmar aspect. He states he did not notice that he accidentally stapled his finger he felt like he could not straighten his finger like his usual trigger finger, but when he could not extend it he looked down and saw the staple. Last tetanus shot was February 2020. No numbness or tingling. He took oxycodone in the waiting room that he brought from home. Review of Systems Constitutional: denies: Fever, Chills PD PAST MEDICAL HISTORY - Past Medical History Past Medical History: Yes Cardiovascular: Atrial fibrillation Respiratory: COPD Neuro: None Endocrine/Autoimmune: None GI: GERD : Kidney stones HEENT: Other Psych: None Musculoskeletal: Osteoarthritis, Chronic back pain Derm: None - Past Surgical History Past Surgical History: Yes General: Hiatal hernia repair Ortho: Spine surgery HEENT: Tonsil/Adenoidectomy - Present Medications Home Medications: Ambulatory Orders Medication Instructions Recorded Confirmed Calcium Carbonate [Calcium] 600 mg PO DAILY 05/30/20 05/30/20 Gabapentin [Neurontin] 600 mg PO TID 05/30/20 05/30/20 Montelukast [Singulair] 10 mg PO DAILY 05/30/20 05/30/20 Multivitamin 1 tab PO DAILY 05/30/20 05/30/20 Omeprazole Magnesium 20 mg PO DAILY 05/30/20 05/30/20 Rivaroxaban [Xarelto] 20 mg PO DAILY 05/30/20 05/30/20 Simvastatin [Zocor] 40 mg PO DAILY 05/30/20 05/30/20 diazePAM [Valium] 5 mg PO DAILY 05/30/20 05/30/20 diphenhydrAMINE [Benadryl] 50 mg PO DAILY 05/30/20 05/30/20 methocarbamoL [Robaxin-750] 750 mg PO TID 05/30/20 05/30/20 ondansetron HCL [Zofran] 4 mg PO Q6HR PRN #14 tab 05/31/20 Cyclobenzaprine [Flexeril] 10 mg PO TID PRN #20 tablet 12/20/21 HYDROcod/ACETAM 5/325 [[place] 5/325] 1 - 2 tablet PO Q6H PRN #14 tablet 12/20/21 Amox/Clav 875/125 [Augmentin] 1 each PO Q12H #20 tablet 07/24/22 cephALEXin [Keflex] 500 mg PO Q6H #28 cap 05/14/23 - Allergies Allergies/Adverse Reactions: Allergies Allergy/AdvReac Type Severity Reaction Status Date / Time latex Allergy Unknown Verified 05/14/23 16:23 Sulfa (Sulfonamide Allergy Unknown Verified 05/14/23 16:23 Antibiotics) - Social History Does the pt smoke?: No Smoking Status: Never smoker Does the pt drink ETOH?: Yes Does the pt have substance abuse?: No - Immunizations Immunizations are current?: No Immunizations: TDAP >10years/unknown - POLST Patient has POLST: No PD ED PE NORMAL - Vitals Vital signs reviewed: Yes - General General: Alert and oriented X 3 - HEENT HEENT: Moist mucous membranes - Neck Neck: Supple, no meningeal sign - Respiratory Respiratory: No respiratory distress - Derm Derm: Warm and dry - Extremities Extremities: Other (R hand - There is a staple located at the PIP joint of the right fifth digit. Spans the joint. Finger is contractured. Neurovascular intact.) - Neuro Neuro: Alert and oriented X 3 Results - Vitals Vitals: Vital Signs - 24 hr 05/14/23 05/14/23 16:23 20:16 Temperature 37 C Heart Rate 77 70 Respiratory 18 15 Rate Blood Pressure 157/91 H 156/95 H O2 Saturation 96 96 Oxygen O2 Source Room air - Rads (name of study) Right hand x-ray Relevant Findings:: Final report received, See rad report Procedures - FB removal FB location: Other (Right fifth digit) FB removal preparation: Local anesthesia-specify (Buffered lidocaine) Removal method: Other (Staple removal kit) FB removal aftercare: No complications, Patient tolerated well, Removed successfully PD Medical Decision Making - ED course Complexity details: reviewed results, re-evaluated patient, considered differential, d/w patient, d/w family ED course: 82-year-old male with a stable accidentally shot into the right fifth digit. Area was anesthetized with lidocaine. The staple was then removed in 1 piece. There are 2 small puncture wounds. Postextraction x-ray does not show any acute abnormalities. Neurovascularly intact. Brisk cap refill. Placed on Keflex. Tetanus up-to-date. Wound was cleansed and bandaged. Warnings of infection and instructions on wound care given at bedside. Patient and family counseled regarding signs and symptoms for which I believe and urgent re-evaluation would be necessary. Patient with good understanding of and agreement to plan and is comfortable going home at this time This document was made in part using voice recognition software. While efforts are made to proofread this document, sound alike and grammatical errors may occur. Departure - Departure Disposition: 01 Home, Self Care Clinical Impression: Foreign body in soft tissue, Puncture wound Condition: Good Instructions: ED Wound Puncture General Follow-Up: Chevy Nazario MD [Primary Care Provider] - Within 3 Days Prescriptions: cephALEXin [Keflex] 500 mg PO Q6H #28 cap Comments: Your antibiotics were sent to [facility] in [place]. Take all anitbiotics until gone. Please follow-up with your doctor for a wound check at the end of this week. Keep the wound clean. Change the dressing daily. You can take off the splint after 1 to 2 days. Please return for redness, swelling or drainage from the wound. Forms: PCP List Discharge Date/Time: 05/14/23 20:17
[2023-05-14] MEDS ORDERED: cephALEXin 250 MG CAPSULE PO STA (18:59)
--- NOTE | 2023-05-14 19:24 | XRAY Report ---
PROCEDURE: Finger(s) RT INDICATIONS: s/p fb staple removal TECHNIQUE: AP hand, 2 views of the fifth finger(s) acquired. COMPARISON: None. FINDINGS: Bones: No fractures or dislocations. No suspicious bony lesions. Soft tissues: No suspicious soft tissue calcifications or masses. IMPRESSION: No radiopaque foreign body. Reviewed by: Leonard Jackman MD on 05/14/2023 7:23 PM [facility] Approved by: Leonard Jackman MD on 05/14/2023 7:23 PM [facility] Station ID: [id number]
[2023-05-14] MEDS ORDERED: BACITRACIN ZINC OINT 1 PACKET TOP STA (19:44)
[2023-05-14 20:19] VITALS: BP 156/95
== END 2023-05-14 20:17 | disposition home or self-care (01) ==
LOC: ED 16:08
DX: S61.246A Puncture wound with foreign body of right little finger without damage to nail, initial encounter (principal); X58.XXXA Exposure to other specified factors, initial encounter; I48.91 Unspecified atrial fibrillation; Z79.01 Long term (current) use of anticoagulants
CPT/HCPCS: 73140; 99283; A9270

== ENCOUNTER 2023-06-05 10:25 | Outpatient (CLI) | payer MEDICARE, OTHER ==
--- NOTE | 2023-06-05 13:53 | XRAY Report ---
PROCEDURE: Hip w/Pelvis 2-3V RT INDICATIONS: RIGHT HIP PAIN TECHNIQUE: 3 views of the hip were acquired. COMPARISON: None. FINDINGS: Bones: No fractures or dislocations. No suspicious bony lesions. Lower lumbar fusion is present. Moderate to severe bilateral degenerative hip joint space narrowing. Minimal particular osteophytes. No erosions. Soft tissues: No suspicious soft tissue calcifications or masses. IMPRESSION: Moderate bilateral hip arthritic change. Reviewed by: Geri Hurtado MD on 06/05/2023 1:52 PM PST Approved by: Geri Hurtado MD on 06/05/2023 1:52 PM PST Station ID: [id number]
== END 2023-06-05 10:26 | disposition home or self-care (01) ==
LOC: DI 10:25
PROVIDERS: ATTEND Student in an Organized Health Care Education/Training Program
DX: M16.0 Bilateral primary osteoarthritis of hip (principal)

== ENCOUNTER 2023-07-09 10:33 | Outpatient (CLI) | payer MEDICARE ==
--- NOTE | 2023-07-09 14:49 | XRAY Report ---
PROCEDURE: Chest 2V INDICATIONS: COUGH TECHNIQUE: 2 views of the chest were acquired. COMPARISON: Chest x-ray, 07/16/2022. FINDINGS: Surgical changes and devices: None. Lungs and pleura: Blunting of the right costophrenic angle may be secondary to pleural scarring or s mall pleural effusion. No pneumothorax. . Mediastinum: Mediastinal contours appear normal. Heart size is normal. Bones and chest wall: Old right sixth rib fracture is noted. No suspicious bony lesions. Overlying soft tissues appear unremarkable. IMPRESSION: 1. Blunting of the right costophrenic angle may be secondary to changes effusion or pleural scarring. Reviewed by: Phoenix Mayo MD on 07/09/2023 2:48 PM PST Approved by: Phoenix Mayo MD on 07/09/2023 2:48 PM PST Station ID: [id number]
== END 2023-07-09 10:34 | disposition home or self-care (01) ==
LOC: DI 10:33
PROVIDERS: ATTEND Student in an Organized Health Care Education/Training Program
DX: R05.9 Cough, unspecified (principal)

== ENCOUNTER 2023-09-01 23:18 | Emergency (ER) | payer MEDICARE ==
--- NOTE | 2023-09-02 00:54 | ED Physician Documentation ---
History of Present Illness - Stated complaint Stated Complaint: SOA/GEN WEAKNESS - Chief complaint Chief Complaint: Resp - History obtained from History obtained from: Patient, Family (daugther of patient) - Additonal information Additional information: Patient c/o 2-3 days of gradually worsening LADD, cough productive of thick yellow-colored sputum. He has had gradually worsening generalized weakness over past 1-2 days. Tonight he developed chills and daughter measured patient's temperature with 101 result. She gave patient tylenol and bring him to ED for evaluation. Patient has COPD but does not use supplemental oxygen at home. h/o similar symptoms and had similar [facility] ED presentation last May (2022) with unremarkble w/u, prescribed augmentin. Patient and his daughter recall he had resolution of these symptoms within 2-3 days of starting the augmentin. Patient lives with daughter and she has had similar URI symtpoms recently as well as other members of the same household. Review of Systems Constitutional: reports: Fever, Chills, Fatigue, Sweats Cardiac: reports: Other (mild chest tightness across upper anterior chest x 1-2 days) Respiratory: reports: Dyspnea, Cough. denies: Hemoptysis, Wheezing GI: reports: Reviewed and negative PD PAST MEDICAL HISTORY - Past Medical History Past Medical History: Yes Cardiovascular: Atrial fibrillation Respiratory: COPD Neuro: None Endocrine/Autoimmune: None GI: GERD : Kidney stones HEENT: Other Psych: None Musculoskeletal: Osteoarthritis, Chronic back pain Derm: None - Past Surgical History Past Surgical History: Yes General: Hiatal hernia repair Ortho: Spine surgery HEENT: Tonsil/Adenoidectomy - Present Medications Home Medications: Ambulatory Orders Medication Instructions Recorded Confirmed Gabapentin [Neurontin] 600 mg PO TID 05/30/20 09/02/23 Montelukast [Singulair] 10 mg PO DAILY 05/30/20 09/02/23 Omeprazole Magnesium 20 mg PO DAILY 05/30/20 09/02/23 Simvastatin [Zocor] 40 mg PO DAILY 05/30/20 09/02/23 diazePAM [Valium] 5 mg PO DAILY 05/30/20 09/02/23 diphenhydrAMINE [Benadryl] 50 mg PO HS 05/30/20 09/02/23 methocarbamoL [Robaxin-750] 750 mg PO TID 05/30/20 09/02/23 Albuterol Sulfate [Proair 90 mcg IH Q4HR PRN 09/02/23 09/02/23 Digihaler] Amox/Clav 875/125 [Augmentin 1 tablet PO Q12H 7 Days #14 tablet 09/02/23 875/125 Tab] Apixaban [Eliquis] 5 mg PO BID 09/02/23 09/02/23 Azelastine HCl 1 spray NS BID 09/02/23 09/02/23 Docusate Sodium 100Mg Capsule 200 mg PO HS 09/02/23 09/02/23 [Colace 100Mg Capsule] Guaifenesin/Dextromethorphan 1 each PO BID 09/02/23 09/02/23 [Mucinex Dm ER 600-30 mg Tablet] Mometasone Furoate [Asmanex] 220 mcg IH DAILY 09/02/23 09/02/23 Olodaterol HCl [Striverdi Respimat] 4 gm IH BID 09/02/23 09/02/23 Oxycodone HCl/Acetaminophen 1 each PO TIDWM PRN 09/02/23 09/02/23 [Oxycodone-Acetaminophen 5-325] Tiotropium [place] [Spiriva] 1 puffs INH DAILY 09/02/23 09/02/23 - Allergies Allergies/Adverse Reactions: Allergies Allergy/AdvReac Type Severity Reaction Status Date / Time latex Allergy Unknown Verified 09/01/23 23:20 Sulfa (Sulfonamide Allergy Unknown Verified 09/01/23 23:20 Antibiotics) - Social History Does the pt smoke?: No Smoking Status: Never smoker Does the pt drink ETOH?: Yes Does the pt have substance abuse?: No - Immunizations Immunizations are current?: No Immunizations: TDAP >10years/unknown - POLST Patient has POLST: No PD ED PE NORMAL - Vitals Vital signs reviewed: Yes - General General: Alert and oriented X 3, No acute distress, Well developed/nourished - Respiratory Respiratory: No respiratory distress - Derm Derm: Normal color, Warm and dry - Extremities Extremities: No edema PD ED PE EXPANDED - Cardiac Cardiac: Irregularly irregular - Respiratory Respiratory: Other (scattered rhonchi bilaterally, more pronounced bilateral bases. slightly diminished breath sounds bilaterally without wheezing) Results - Vitals Vitals: Vital Signs - 24 hr 0409/02/23 09/02/23 23:21 01:35 02:40 Temperature 37.1 C Heart Rate 85 88 69 Respiratory 16 18 18 Rate Blood Pressure 140/75 H 117/62 O2 Saturation 92 91 L Oxygen O2 Source Room air - EKG (time done) No standard instances EKG releavant findings:: EKG personally interpreted by author of this note. Relevant findings are: Rate: Rate (enter#) (67) Rhythm: Atrial fibrillation - Labs Labs: Laboratory Tests 09/01/23 09/02/23 09/02/23 23:34 01:36 01:36 WBC 10.6 RBC 4.43 L Hgb 13.6 L Hct 42.9 MCV 96.8 H MCH 30.7 MCHC 31.7 L RDW 13.3 Plt Count 196 MPV 9.5 Neut # (Auto) 8.8 H Lymph # (Auto) 1.1 L Boyle # (Auto) 0.5 Eos # (Auto) 0.2 Baso # (Auto) 0.0 Absolute Nucleated RBC 0.00 Nucleated RBC % 0.0 Sodium Potassium Chloride Carbon Dioxide Anion Gap BUN Creatinine Estimated GFR (MDRD) Glucose Calcium Troponin I High Sens B-Natriuretic Peptide 173 H Nasal Adenovirus (PCR) NOT DETECTED Nasal B. parapertussis DNA (PCR) NOT DETECTED Nasal Coronavir 229E PCR NOT DETECTED Nasal Coronavir HKU1 PCR NOT DETECTED Nasal Coronavir NL63 PCR NOT DETECTED Nasal Coronavir OC43 PCR NOT DETECTED Nasal Enterovir/Rhinovir PCR NOT DETECTED Nasal Influenza B PCR NOT DETECTED Nasal Influenza A PCR NOT DETECTED Nasal Parainfluen 1 PCR NOT DETECTED Nasal Parainfluen 2 PCR NOT DETECTED Nasal Parainfluen 3 PCR NOT DETECTED Nasal Parainfluen 4 PCR NOT DETECTED Nasal RSV (PCR) NOT DETECTED Nasal B.pertussis DNA PCR NOT DETECTED Nasal C.pneumoniae (PCR) NOT DETECTED Sergo Human Metapneumo PCR NOT DETECTED Nasal M.pneumoniae (PCR) NOT DETECTED Nasal SARS-CoV-2 (PCR) NOT DETECTED 09/02/23 09/02/23 01:36 01:36 WBC RBC Hgb Hct MCV MCH MCHC RDW Plt Count MPV Neut # (Auto) Lymph # (Auto) Boyle # (Auto) Eos # (Auto) Baso # (Auto) Absolute Nucleated RBC Nucleated RBC % Sodium 138 Potassium 4.3 Chloride 106 Carbon Dioxide 27 Anion Gap 5.0 L BUN 18 Creatinine 1.1 Estimated GFR (MDRD) 64 L Glucose 120 H Calcium 8.4 L Troponin I High Sens 5.6 B-Natriuretic Peptide Nasal Adenovirus (PCR) Nasal B. parapertussis DNA (PCR) Nasal Coronavir 229E PCR Nasal Coronavir HKU1 PCR Nasal Coronavir NL63 PCR Nasal Coronavir OC43 PCR Nasal Enterovir/Rhinovir PCR Nasal Influenza B PCR Nasal Influenza A PCR Nasal Parainfluen 1 PCR Nasal Parainfluen 2 PCR Nasal Parainfluen 3 PCR Nasal Parainfluen 4 PCR Nasal RSV (PCR) Nasal B.pertussis DNA PCR Nasal C.pneumoniae (PCR) Sergo Human Metapneumo PCR Nasal M.pneumoniae (PCR) Nasal SARS-CoV-2 (PCR) - Rads (name of study) chest xray Relevant Findings:: Prelim report reviewed, See rad report PD Medical Decision Making - ED course Complexity details: reviewed results, re-evaluated patient, considered differential, d/w patient, d/w family ED course: No concerning findings on CBC (normal WBC) nor BMP. Normal hs-cTn, unremarkable EKG (atrial fibrillation is not new and he is on appropriate anticoagulant). he is given duoneb in ED and reports feeling improvement in his dyspnea with this intervention. Respiratory PCR negative. Although H+P and diagnostic are s/o bronchitis, his COPD and age place him at greater risk of rapid decompensation should he progress to LRTI and thus he is given 875 mg PO augmentin in ED with Rx for one-week course of augmentin e-prescribed to his pharmacy of choice. Results reviewed with patient/daughter and return precautions are discussed prior to d/c. Departure - Departure Disposition: Home, Self Care Clinical Impression: Bronchitis Condition: Good Instructions: ED Upper Resp Infec Abx Tx Prescriptions: Amox/Clav 875/125 [Augmentin 875/125 Tab] 1 tablet PO Q12H 7 Days #14 tablet Comments: There were no concerning nor diagnostic findings on tonight's test, including the blood tests and the nasal swab. The nasal swab was negative for the viruses we test on this panel which includes COVID and influenza. There is no evidence of pneumonia on your chest x-ray. However, based on your symptom description and a measured fever at home of 101, I am prescribing a 1-week course of antibiotic (Augmentin), the first dose of which was given in the emergency department. I have electronically submitted the prescription to the [facility] pharmacy in [place]. Discharge Date/Time: 09/02/23 03:20
[2023-09-02 01:10] LABS: B. PARAPERTUSSIS- RESP PCR PAN NOT DETECTED; B. PERTUSSIS- RESP PCR PANEL NOT DETECTED; C. PNEUMONIAE- RESP PCR PANEL NOT DETECTED; CORONAVIRUS 229E-RESP PCR NOT DETECTED; CORONAVIRUS HKU1-RESP PCR NOT DETECTED; CORONAVIRUS NL63-RESP PCR NOT DETECTED; CORONAVIRUS OC43-RESP PCR NOT DETECTED; HUMAN METAPNEUMOVIRUS NOT DETECTED; INFLUENZA A- RESP PCR PANEL NOT DETECTED; INFLUENZA B - RESP PCR PANEL NOT DETECTED; M. PNEUMONIAE- RESP PCR PANEL NOT DETECTED; PARAINFLUENZA VIRUS 1 NOT DETECTED; PARAINFLUENZA VIRUS 2 NOT DETECTED; PARAINFLUENZA VIRUS 3 NOT DETECTED; PARAINFLUENZA VIRUS 4 NOT DETECTED; RHINOVIRUS/ENTEROVIRUS NOT DETECTED; RSV- RESP PCR PANEL NOT DETECTED; SARS-CoV-2 -RESP PCR PANEL NOT DETECTED
--- NOTE | 2023-09-02 01:30 | XRAY Report ---
PROCEDURE: Chest 1V INDICATIONS: cough TECHNIQUE: One view of the chest was acquired. COMPARISON: Chest x-ray, 07/09/2023. FINDINGS: Surgical changes and devices: None. Lungs and pleura: Small right pleural effusion is resolved. There is left basilar atelectasis. No co nsolidation. No pneumothorax. Mediastinum: Mediastinal contours appear normal. Heart size is normal. Bones and chest wall: Old right rib fractures noted. No suspicious bony lesions. Overlying soft tis sues appear unremarkable. IMPRESSION: 1. No acute cardiopulmonary disease. Left basilar atelectasis. Reviewed by: Phoenix Mayo MD on 09/02/2023 1:28 AM PDT Approved by: Phoenix Mayo MD on 09/02/2023 1:28 AM PDT Station ID: [id number]
[2023-09-02] MEDS: IPRATROPIUM/ALBUTEROL 3 ML NEB INH STA (01:33)
[2023-09-02 01:44] LABS: BASOPHILS % (AUTO) 0.3 %; EOSINOPHILS # (AUTO) 0.2 10^3/uL (0.0-0.7); EOSINOPHILS % (AUTO) 1.7 %; HCT - HEMATOCRIT 42.9 % (42.0-52.0); HGB - HEMOGLOBIN 13.6 g/dL (14.0-18.0); LYMPHOCYTES # (AUTO) 1.1 10^3/uL (1.5-3.5); LYMPHOCYTES % (AUTO) 10.7 %; MEAN CORPUSCULAR HEMOGLOBIN 30.7 pg (27.0-31.0); MEAN CORPUSCULAR HGB CONC 31.7 g/dL (32.0-36.0); MEAN CORPUSCULAR VOLUME 96.8 fL (80.0-94.0); MEAN PLATELET VOLUME 9.5 fL (7.4-11.4); MONOCYTES # (AUTO) 0.5 10^3/uL (0.0-1.0); MONOCYTES % (AUTO) 4.9 %; NEUTROPHILS # (AUTO) 8.8 10^3/uL (1.5-6.6); NEUTROPHILS % (AUTO) 82.2 %; PLT - PLATELET COUNT 196 10^3/uL (130-450); RED BLOOD COUNT 4.43 10^6/uL (4.70-6.10); RED CELL DISTRIBUTION WIDTH 13.3 % (12.0-15.0); WHITE BLOOD COUNT 10.6 x10^3/uL (4.8-10.8)
[2023-09-02 02:08] LABS: CALCIUM 8.4 mg/dL (8.5-10.3); CREATININE 1.1 mg/dL (0.6-1.3); POTASSIUM 4.3 mmol/L (3.5-4.5)
[2023-09-02 02:53] VITALS: BP 117/62; O2SAT 91
[2023-09-02] MEDS: AMOX/CLAV 875 MG/125 MG TABLET PO STA (03:17)
== END 2023-09-02 03:20 | disposition home or self-care (01) ==
LOC: ED 23:18
DX: J44.89 Other specified chronic obstructive pulmonary disease (principal); I48.91 Unspecified atrial fibrillation; Z79.01 Long term (current) use of anticoagulants; Z11.52 Encounter for screening for COVID-19
CPT/HCPCS: 36415; 71045; 80048; 83880; 84484; 85025; 87633; 93005; 94640; 99284; A9270

== ENCOUNTER 2024-01-28 10:09 | Outpatient (CLI) | payer MEDICARE ==
--- NOTE | 2024-01-28 15:38 | CT Report ---
PROCEDURE: Chest WO INDICATIONS: ABN CT TECHNIQUE: A CT scan of the chest was performed. Intravenous contrast media was not administered. Images were re corded and evaluated at appropriate window settings. Reformats: axial MIP of the chest, coronal and s agittal. For radiation dose reduction, the following was used: automated exposure control, adjustment of mA and/or kV according to patient size. COMPARISON: 07/30/2023 FINDINGS: Image quality: Diagnostic. Chest wall and lower neck: No thyroid nodule which requires sonographic follow up. No axillary or sup raclavicular adenopathy by size. Lungs and pleura: No consolidation. No pleural effusions. No pneumothorax. Calcified granuloma. Reso lved bilateral solid pulmonary nodules. Moderate centrilobular emphysema. Diffuse bronchial thickenin g. Juxtapleural nodules with smooth margins, favoring benign intrapulmonary lymph nodes. Stable 6 mm solid nodule in the right middle lobe (series 3, image 236). A few new tree-in-bud nodules in the an terior right middle lobe. Mediastinum: Heart size is enlarged. Marked LAD calcifications. No pericardial effusion. No large ves kecia abnormality. No mediastinal adenopathy by size criteria. Bones: No aggressive osseous abnormality. Upper Abdomen: Unremarkable. IMPRESSION: Resolved bibasilar solid pulmonary nodules, consistent with prior infection. A few new tree-in-bud nodules in the anterior right middle lobe, probably representing a mild form of loculated. Stable 6 mm solid nodule in the right middle lobe. Reviewed by: Leonard Jackman MD on 01/28/2024 3:37 PM PDT Approved by: Leonard Jackman MD on 01/28/2024 3:37 PM PDT Station ID: [id number]
== END 2024-01-28 10:10 | disposition home or self-care (01) ==
LOC: DI 10:09
PROVIDERS: ATTEND Internal Medicine Pulmonary Disease
DX: R91.8 Other nonspecific abnormal finding of lung field (principal)

== ENCOUNTER 2024-01-30 12:00 | Outpatient (CLI) | payer MEDICARE ==
[2024-01-30 19:20] LABS: ALBUMIN 3.9 g/dL (3.2-5.5); ALBUMIN/GLOBULIN RATIO 1.3 (1.0-2.2); BILIRUBIN,TOTAL 0.5 mg/dL (0.2-1.0); CALCIUM 8.8 mg/dL (8.5-10.3); CREATININE 1.3 mg/dL (0.6-1.3); POTASSIUM 4.4 mmol/L (3.5-4.5); TOTAL PROTEIN 6.9 g/dL (6.4-8.9)
== END 2024-01-30 12:15 | disposition home or self-care (01) ==
LOC: LAB.N 12:00
PROVIDERS: ATTEND Physician Assistant Medical
DX: J06.9 Acute upper respiratory infection, unspecified (principal)
CPT/HCPCS: 36415; 80053

== ENCOUNTER 2024-10-15 23:27 | Inpatient (IN) ==
--- OUTSIDE RECORDS SUMMARY | 2024-10-15 23:55 | EXTERNAL MEDICAL SUMMARY RPT | Continuity of Care Document ---
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
[2024-10-16 00:50] LABS: CORONAVIRUS 229E-RESP PCR NOT DETECTED; CORONAVIRUS HKU1-RESP PCR NOT DETECTED; CORONAVIRUS NL63-RESP PCR NOT DETECTED; CORONAVIRUS OC43-RESP PCR NOT DETECTED; HUMAN METAPNEUMOVIRUS NOT DETECTED; INFLUENZA A- RESP PCR PANEL NOT DETECTED; RHINOVIRUS/ENTEROVIRUS NOT DETECTED; SARS-CoV-2 -RESP PCR PANEL NOT DETECTED
[2024-10-16 00:51] LABS: B. PARAPERTUSSIS- RESP PCR PAN NOT DETECTED; B. PERTUSSIS- RESP PCR PANEL NOT DETECTED; C. PNEUMONIAE- RESP PCR PANEL NOT DETECTED; INFLUENZA B - RESP PCR PANEL NOT DETECTED; M. PNEUMONIAE- RESP PCR PANEL NOT DETECTED; PARAINFLUENZA VIRUS 1 NOT DETECTED; PARAINFLUENZA VIRUS 2 NOT DETECTED; PARAINFLUENZA VIRUS 4 NOT DETECTED; RSV- RESP PCR PANEL NOT DETECTED
--- NOTE | 2024-10-16 01:07 | XRAY Report ---
PROCEDURE: XR Chest 1V INDICATIONS: COUGH TECHNIQUE: One view of the chest was acquired. COMPARISON: CXR 09/02/2023. FINDINGS: Surgical changes and devices: None. Lungs and pleura: Mild opacity at the right lung base. Blunting of the gastric angle suggesting small pleural effusion. No pneumothorax. Mediastinum: Mediastinal contours appear normal. Heart size is normal. Bones and chest wall: No suspicious bony lesions. Prior right-sided rib fractures. Overlying soft tissues appear unremarkable. IMPRESSION: Right lower lobe ill-defined opacity. This could represent pneumonia or atelectasis. Small right pleural effusion. Reviewed by: Michel Reina MD on 10/16/2024 1:06 AM PDT Approved by: Michel Reina MD on 10/16/2024 1:06 AM PDT Station ID: [id number]
--- NOTE | 2024-10-16 02:26 | ED Physician Documentation ---
History of Present Illness Stated complaint Stated Complaint: FEVER Chief complaint Chief Complaint: Resp Additonal information Additional information: HPI from patient and family member. Patient c/o 3 days of fever, Tmax 102.4 (earlier this evening), productive cough (patient has chronic, [employer]IVER cough but distinct increase frequency x 3 days and became productive of thick discolored sputum). Dyspnea on exertion and generalized weakness since this morning. Denies chest pain, AUGUST, AMS. PMHx includes COPD. He does not use supplemental oxygen at home but uses CPAP QHS. Denies dysuria, urinary frequency, abdominal pain, n/v. Meds/Allgy Home Medications Ambulatory Orders Medication Instructions Recorded Confirmed diphenhydramine HCl 25 mg capsule 50 mg PO HS 05/30/20 10/16/24 (Banophen) methocarbamol 750 mg tablet 750 mg PO BID 05/30/20 (Robaxin-750) montelukast 10 mg tablet 10 mg PO DAILY 05/30/2009/25 omeprazole magnesium 20 mg 20 mg PO DAILY 05/30/20 capsule,delayed release simvastatin 40 mg tablet (Zocor) 40 mg PO QPM 05/30/20 10/16/24 albuterol sulfate 90 mcg/actuation 90 mcg inhalation Q 4HR PRN 09/02/23 10/16/24 breath activated powder Shortness Of Air/Wheezing inhaler,sensor (Proair Digihaler) apixaban 5 mg tablet (Eliquis) 5 mg PO BID 09/02/23 azelastine 205.5 mcg (0.15 %) 1 spray intranasal HS 10/16/24 nasal spray dextromethorphan-guaifenesin 30 1 ea PO BID 09/02/23 0 10/16/24 mg-600 mg tablet extended hr (Mucinex DM) oxycodone-acetaminophen 5 mg-325 1 ea PO HS Pain 5-7 0 09/02/23 10/16/24 mg tablet cetirizine 10 mg tablet 10 mg PO DAILY 10/16/2409/25 diazepam 5 mg tablet 5 mg PO HS PRN anxiety 10/1610/16/24 fluticasone propionate 50 2 spray intranasal DAILY 05/ 23/25 05/23/25 mcg/actuation nasal spray,suspension (24 Hour Allergy Relief) gabapentin 600 mg tablet 600 mg PO BID 10/16/2410/16 tiotropium 2.5 mcg-olodaterol 2.5 2 inh inhalation MALENA LY 10/16/24 10/16/24 mcg/actuation mist for inhalation (Stiolto Respimat) Allergies Allergies Allergy/AdvReac Type Severity Reaction Status Date / Time latex Allergy Unknown Verified 09/15/23 10:49 Sulfa (Sulfonamide Allergy Unknown Verified 09/15/23 10:49 Antibiotics) PFSH Active Problems All Active Problems (Updated 10/16/24 @ 05:55 by Stephania Vasquez MD) G[place] (obstructive sleep apnea) (Acute) Atrial fibrillation (Acute) Acute respiratory failure with hypoxia (Acute) Pneumonia (Acute) Pneumonia (Acute) Dizziness (Acute) Hypertension (Acute) Headache (Acute) Medical History Medical History (Updated 10/16/24 @ 05:55 by Stephania Vasquez MD) COPD (chronic obstructive pulmonary disease) Social History Social History Smoking Status: Former smoker If you are a former smoker, when did you quit? (Date/Year): 2008 Number of Years Smoked: 45 How many cigarettes a day do you smoke? (20 cigarettes=1 Pk): 20 Second hand tobacco smoke exposure: Yes Do you dip or chew tobacco?: No Do you vape?: No Patient requests smoking cessation consult: No Initiate information on smoking cessation: No Relationship: Spouse Level: Independent Do you feel safe in your home environment?: Yes Suffered physical, verbal, emotional, or financial abuse?: No History of Abuse: No ETOH Use: Frequency: Occasional Substance Use: denies use POLST Patient has POLST: No Exam Exam Vital Signs: Vital Signs x48h Temp Pulse Resp BP Pulse Ox 10/15/24 23:35 37.4 C 79 20 155/68 H 94 Constitutional normal general appearance, no apparent distress and alert [place] Respiratory breath sounds equal bilaterally, normal respiratory effort, auscultation abnormal (right base rhonchi and diminished air flow/breath sounds) (diminished breath sound) (right base), no wheezes, no rales and no use of accessory muscles Cardiovascular normal heart rate noted, regular rhythm noted and murmur noted (systolic) and (II/) (at base and LSB) Gastrointestinal abdomen soft to palpation and nontender to palpation Psychiatry mental status grossly normal Skin skin color normal Results Vitals Vitals: Vital Signs - 24 hr 10/16/24 03:40 10/16/24 04:02 10/16/24 04:27 Temperature Temperature Source Pulse Rate 87 Respiratory Rate 26 H Blood Pressure 143/81 H O2 Saturation 93 89 L 86 L O2 Source Room air Room air Room air 10/16/24 05:47 Temperature 37.0 C Temperature Source Temporal Artery Scan Pulse Rate 86 Respiratory Rate 16 Blood Pressure 139/79 H O2 Saturation 95 O2 Source Room air Oxygen O2 Source Room air Labs Labs: Microbiology 10/16/24 03:13 Blood Culture - Preliminary Blood - Right Arm NO GROWTH AFTER 1 DAY Laboratory Tests 10/15/24 10/16/24 10/16/24 23:43 03:13 05:50 WBC 8.8 RBC 4.82 Hgb 14.7 Hct 46.8 MCV 97.1 H MCH 30.5 MCHC 31.4 L RDW 13.6 Plt Count 258 MPV 9.2 Neut # (Auto) 6.6 Lymph # (Auto) 1.2 L [place] # (Auto) 0.6 Eos # (Auto) 0.2 Baso # (Auto) 0.1 Absolute Nucleated RBC 0.00 Nucleated RBC % 0.0 Sodium 137 Potassium 4.1 Chloride 105 Carbon Dioxide 26 Anion Gap 6.0 BUN 17 Creatinine 1.3 Estimated GFR (MDRD) 53 L Glucose 114 H Lactic Acid 0.7 Calcium 8.7 B-Natriuretic Peptide 173 H Urine Color YELLOW Urine Clarity CLEAR Urine pH 6.5 Ur Specific [place] <=1.005 Urine Protein NEGATIVE Urine Glucose (UA) NEGATIVE Urine Ketones NEGATIVE Urine Occult Blood NEGATIVE Urine Nitrite NEGATIVE Urine Bilirubin NEGATIVE Urine Urobilinogen 0.2 (NORMAL) Ur Leukocyte Esterase NEGATIVE Ur Microscopic Review NOT INDICATED Urine Culture Comments NOT INDICATED Nasal Adenovirus (PCR) NOT DETECTED Nasal B. parapertussis DNA (PCR) NOT DETECTED Nasal Coronavir 229E PCR NOT DETECTED Nasal Coronavir HKU1 PCR NOT DETECTED Nasal Coronavir NL63 PCR NOT DETECTED Nasal Coronavir OC43 PCR NOT DETECTED Nasal Enterovir/Rhinovir PCR NOT DETECTED Nasal Influenza B PCR NOT DETECTED Nasal Influenza A PCR NOT DETECTED Nasal Parainfluen 1 PCR NOT DETECTED Nasal Parainfluen 2 PCR NOT DETECTED Nasal Parainfluen 3 PCR NOT DETECTED Nasal Parainfluen 4 PCR NOT DETECTED Nasal RSV (PCR) NOT DETECTED Nasal B.pertussis DNA PCR NOT DETECTED Nasal C.pneumoniae (PCR) NOT DETECTED Sergo Human Metapneumo PCR NOT DETECTED Nasal M.pneumoniae (PCR) NOT DETECTED Nasal SARS-CoV-2 (PCR) NOT DETECTED Rads (name of study) CXR: Relevant Findings:: Prelim report reviewed and See rad report PD Medical Decision Making ED course Complexity details: reviewed results, re-evaluated patient, considered differential, d/w patient and d/w family ED course: Recurrent desaturations during ED stay when on room air to mid/upper 80s, which persisted after albuterol neb x 2. Improved to low 90s pulse ox on 2 L/minute [place] oxygen. RLL infiltrate with small pleural effusion on CXR. His age and the presence of pleural effusion on CXR already place his PSI score at 92, moderate risk with inpatient treatment recommended. Also is requiring supplemental oxygen in ED to maintain saturations at/above 90% (does not have supplemental oxygen requirement at home). He is given IV rocephin and zithromax and admitted to [facility] hospitalist service. Discharge Plan Discharge Patient Disposition: [facility] DC/Xfer Condition: Good Clinical Impression: Pneumonia Interventions: ED Admission Assessment Last Done: 10/16/24 06:34
[2024-10-16 03:21] LABS: BASOPHILS # (AUTO) 0.1 10^3/uL (0.0-0.1); BASOPHILS % (AUTO) 0.6 %; EOSINOPHILS # (AUTO) 0.2 10^3/uL (0.0-0.7); EOSINOPHILS % (AUTO) 2.5 %; HCT - HEMATOCRIT 46.8 % (42.0-52.0); HGB - HEMOGLOBIN 14.7 g/dL (14.0-18.0); LYMPHOCYTES # (AUTO) 1.2 10^3/uL (1.5-3.5); LYMPHOCYTES % (AUTO) 13.9 %; MEAN CORPUSCULAR HEMOGLOBIN 30.5 pg (27.0-31.0); MEAN CORPUSCULAR HGB CONC 31.4 g/dL (32.0-36.0); MEAN CORPUSCULAR VOLUME 97.1 fL (80.0-94.0); MEAN PLATELET VOLUME 9.2 fL (7.4-11.4); MONOCYTES # (AUTO) 0.6 10^3/uL (0.0-1.0); NEUTROPHILS # (AUTO) 6.6 10^3/uL (1.5-6.6); PLT - PLATELET COUNT 258 10^3/uL (130-450); RED BLOOD COUNT 4.82 10^6/uL (4.70-6.10); RED CELL DISTRIBUTION WIDTH 13.6 % (12.0-15.0); WHITE BLOOD COUNT 8.8 x10^3/uL (4.8-10.8)
[2024-10-16] MEDS: ALBUTEROL NEB 2.5 MG/3 ML INH STA (03:23)
[2024-10-16 03:39] LABS: CALCIUM 8.7 mg/dL (8.5-10.3); CREATININE 1.3 mg/dL (0.6-1.3); POTASSIUM 4.1 mmol/L (3.5-4.5)
[2024-10-16] MEDS: cefTRIAXone 2 GM VIAL IVP STA (03:44)
[2024-10-16] MEDS: AZITHROMYCIN INJ 500 MG in SODIUM CHLORIDE 0.9% 250 ML IV STA (03:46)
[2024-10-16 05:57] LABS: BILIRUBIN,URINE NEGATIVE (NEGATIVE); GLUCOSE, URINE (UA) NEGATIVE (NEGATIVE); KETONES,URINE (UA) NEGATIVE (NEGATIVE); LEUKOCYTE ESTERASE, URINE NEGATIVE (NEGATIVE); NITRITE,URINE NEGATIVE (NEGATIVE); OCCULT BLOOD,URINE NEGATIVE (NEGATIVE); PH,URINE 6.5 PH (5.0-7.5); PROTEIN,URINE NEGATIVE (NEGATIVE); UROBILINOGEN,URINE 0.2 (NORMAL) E.U./dL (NORMAL)
[2024-10-16 05:58] LABS: CLARITY,URINE CLEAR (CLEAR)
--- NOTE | 2024-10-16 06:03 | HISTORY & PHYSICAL EXAMINATION ---
Chief Complaint Chief Complaint Chief Complaint: shortness of breath and fever History of Present Illness Admitted From Admitted From:: Home History Obtained From Records Reviewed: yes History obtained from: ED physician, patient, and family at bedside Exam Limitations: Telemedicine, patient hard of hearing History of Present Illness HPI Comment/Other: Patient with a history of hypertension, copd, garrick presented to the Ed with cough and shortness of breath x 3 days. patient had productive cough and reported fevers. He was noted to be hypoxic on room air, he does not use oxygen at home. Patient workup was consistent with RLL pneumonia. I will admit for further management of acute respiratory failure and pneumonia I performed this visit using real-time tele-health tools, including live-video and telephone. patient provided verbal consent to perform this visit using the tele-health modalities available. At the time of this visit, the patient was located at [facility] in the [facility], I was located in [place]. patient's daughter Katja was also at bedside during the vist. Review of Systems Status of ROS: 10 or more systems reviewed and unremarkable except as noted in history and below PFSH Active Problems All Active Problems (Updated 10/16/24 @ 05:55 by Stephania Vasquez MD) GARRICK (obstructive sleep apnea) (Acute) Atrial fibrillation (Acute) Acute respiratory failure with hypoxia (Acute) Pneumonia (Acute) Pneumonia (Acute) Dizziness (Acute) Hypertension (Acute) Headache (Acute) Medical History Medical History (Updated 10/16/24 @ 05:55 by Stephania Vasquez MD) COPD (chronic obstructive pulmonary disease) Social History Social History Smoking Status: Never smoker If you are a former smoker, when did you quit? (Date/Year): 2008 Number of Years Smoked: 40 How many cigarettes a day do you smoke? (20 cigarettes=1 Pk): 20 Do you vape?: No Relationship: Do you feel safe in your home environment?: Yes Suffered physical, verbal, emotional, or financial abuse?: No History of Abuse: No ETOH Use: Frequency: Occasional POLST Patient has POLST: No Meds/Allgy Home Medications Ambulatory Orders Medication Instructions Recorded Confirmed diazepam 10 mg tablet (Valium) 5 mg PO DAILY 05/30/20 09/02/23 diphenhydramine HCl 25 mg capsule 50 mg PO HS 05/30/20 09/02/23 (Banophen) gabapentin 400 mg capsule 600 mg PO TID 05/30/2009/01 methocarbamol 750 mg tablet 750 mg PO TID 05/30/2001/17 (Robaxin-750) montelukast 10 mg tablet 10 mg PO DAILY 05/30/20 04/01/17 omeprazole magnesium 20 mg 20 mg PO DAILY 05/30/2001/17 capsule,delayed release simvastatin 40 mg tablet (Zocor) 40 mg PO DAILY 09/02/23 albuterol sulfate 90 mcg/actuation 90 mcg IH Q4HR PRN Shortness Of 09/02/23 09/02/23 breath activated powder Air/Wheezing inhaler,sensor (Proair Digihaler) amoxicillin 875 mg-potassium 1 tab PO Q12H 7 days #14 tabs 09/02/23 clavulanate 125 mg tablet apixaban 5 mg tablet (Eliquis) 5 mg PO BID 09/02/23 azelastine 205.5 mcg (0.15 %) 1 spray NS BID 09/02/23 09/02/23 nasal spray dextromethorphan-guaifenesin 30 1 ea PO BID 09/02/23 0 09/02/23 mg-600 mg tablet extended [id number] hr (Mucinex DM) docusate sodium 100 mg capsule 200 mg PO HS 09/02/23 0 09/02/23 (Stool Softener) mometasone 220 mcg/actuation(60 220 mcg IH DAILY 09/0109/02/23 doses) breath activated powder inhaler (Asmanex Twisthaler) olodaterol 2.5 mcg/actuation mist 4 g IH BID 09/02/23 09/02/23 for inhalation (Striverdi Respimat) oxycodone-acetaminophen 5 mg-325 1 ea PO TIDWM PRN Ti n 5-7 09/02/23 09/02/23 mg tablet tiotropium bromide 18 mcg capsule 1 puff inhalation DA JO ANN 09/02/23 09/02/23 with inhalation device (Spiriva with HandiHaler) polymyxin B sulfate 10,000 1 drp RIGHTEYE Q3H 7 days # 1 ea 09/15/23 unit-trimethoprim 1 mg/mL eye drops Allergies Allergies Allergy/AdvReac Type Severity Reaction Status Date / Time latex Allergy Unknown Verified 09/15/23 10:49 Sulfa (Sulfonamide Allergy Unknown Verified 09/15/23 10:49 Antibiotics) Exam Exam Vital Signs: Vital Signs x48h Temp Pulse Resp BP Pulse Ox 10/16/24 04:27 86 L 10/16/24 04:02 89 L 10/16/24 03:40 87 26 H 143/81 H 93 10/16/24 03:26 86 20 10/15/24 23:35 37.4 C 79 20 155/68 H 94 My physical examination as recorded, is based on patient reported information or obtained through peripheral observation Chest inspection of chest normal Respiratory breath sounds unequal, abnormal respiratory effort (labored) and no wheezes Cardiovascular normal heart rate noted and regular rhythm noted Extremities normal to inspection and full ROM Neurology java spring developer II-XII intact and no focal motor deficit noted Skin skin color normal Sepsis Event Note (H) Evaluation Current Stage of Sepsis: Ruled out Conclusion/Plan Problem List (1) Pneumonia: Plan: I reviewed chest xray , shows opacity in RLL. with shortness of breath and fever concerning for pneumonia. PSI score elevated high mortality risk. I will admit and manage as follows -initiate antibiotic with azithromycin and rocpehin, monitor for therapeutic effects and toxicity -incentive spirometry and PEP therapy to encourage mucus mobilization and prevent atelectasis -reviewed respiratroy panel, cultures pending Qualifiers: Laterality: right Lung location: lower lobe of lung Pneumonia type: d ue to unspecified organism Qualified Code(s): J18.9 - Pneumonia, unspecified organism (2) Acute respiratory failure with hypoxia: Plan: patient noted to be hypoxic on room air, no home oxygen used at home. -continue with supplemental oxygen, titrate to maintain saturations above 88% -closely monitor vitals with continuous pulse oximetry -RT consultation as needed (3) COPD (chronic obstructive pulmonary disease): Plan: home medication reviewed -will initiate duonebs q4h during management of acute illness -titrate to home inhalers as clinical improves -defer steroids at this time Qualifiers: COPD type: COPD with acute lower respiratory infection Qualified Code(s): J44.0 - Chronic obstructive pulmonary disease with (acute) lower respiratory infection (4) Hypertension: Plan: home medications reviewed -wll resume as tolerated Qualifiers: Hypertension type: essential hypertension Qualified Code(s): I10 - Essential (primary) hypertension (5) Atrial fibrillation: Plan: home medication reviewed -will resume eliquis -monitor cbc, and coags for signs of toxicity or acute blood loss Qualifiers: Atrial fibrillation type: paroxysmal Qualified Code(s): I48.0 - Paroxysmal atrial fibrillation (6) GARRICK (obstructive sleep apnea): Plan: -cpap Lab Results Lab results reviewed: Yes 10/16/24 03:13 10/16/24 03:13 Core Measures Anticipated LOS I expect patient to be DC'd or transferred within 96 hours.: Yes DVT/VTE - Prophylaxis VTE/DVT Device ordered at admit?: Yes Telemedicine Consult Details Provider Location & Consult Time Telemedicine consultation conducted via videoconferencing?: Yes
[2024-10-16] MEDS: APIXABAN 5 MG TABLET PO SCH (09:19)
[2024-10-16] MEDS: ATORVASTATIN 10 MG TABLET PO SCH (09:19)
[2024-10-16] MEDS: MONTELUKAST 10 MG TABLET PO SCH (09:19)
[2024-10-16] MEDS: GABAPENTIN 300 MG CAPSULE PO SCH ×2 (09:20→21:44)
[2024-10-16] MEDS: POLYMYXIN B/TRIMETH OPHTH DROPS RIGHTEYE SCH (09:20)
[2024-10-16] MEDS ORDERED: diazePAM 5 MG TABLET PO SCH (09:24)
[2024-10-16] MEDS: diazePAM 5 MG TABLET PO SCH (09:26)
[2024-10-16] MEDS: SODIUM CHLORIDE FLUSH 0.9% 10 ML SYRINGE IVP SCH (09:27)
[2024-10-16] MEDS: IPRATROPIUM/ALBUTEROL 3 ML NEB INH SCH ×2 (10:03→12:21)
[2024-10-16] MEDS: ACETAMINOPHEN 325 MG TABLET PO PRN (11:37)
[2024-10-16] MEDS: oxyCODONE 5 MG TABLET PO PRN (11:38)
--- NOTE | 2024-10-16 11:39 | PHARMACY PROGRESS NOTE ---
Best Possible Medication History Admit Date and Time: 10/16/246000929 Home Medications Medication Instructions Recorded Confirmed Type diphenhydramine HCl 25 mg capsule 50 mg PO HS 05/30/20 10/16/24 History (Banophen) methocarbamol 750 mg tablet 750 mg PO BID 05/30/20 History (Robaxin-750) montelukast 10 mg tablet 10 mg PO DAILY 05/30/2009/25 History omeprazole magnesium 20 mg 20 mg PO DAILY 05/30/20 History capsule,delayed release simvastatin 40 mg tablet (Zocor) 40 mg PO QPM 05/30/20 10/16/24 History albuterol sulfate 90 mcg/actuation 90 mcg inhalation Q 4HR PRN 09/02/23 10/16/24 History breath activated powder Shortness Of Air/Wheezing inhaler,sensor (Proair Digihaler) apixaban 5 mg tablet (Eliquis) 5 mg PO BID 09/02/23 History azelastine 205.5 mcg (0.15 %) 1 spray intranasal HS 10/16/24 History nasal spray dextromethorphan-guaifenesin 30 1 ea PO BID 09/02/23 0 10/16/24 History mg-600 mg tablet extended [id number] hr (Mucinex DM) oxycodone-acetaminophen 5 mg-325 1 ea PO HS Pain 5-7 0 09/02/23 10/16/24 History mg tablet cetirizine 10 mg tablet 10 mg PO DAILY 10/16/2409/25 History diazepam 5 mg tablet 5 mg PO HS PRN anxiety 10/1610/16/24 History fluticasone propionate 50 2 spray intranasal DAILY 10/16/24 History mcg/actuation nasal spray,suspension (24 Hour Allergy Relief) gabapentin 600 mg tablet 600 mg PO BID 10/16/2410/16 History tiotropium 2.5 mcg-olodaterol 2.5 2 inh inhalation MALENA LY 10/16/24 10/16/24 History mcg/actuation mist for inhalation (Stiolto Respimat) Processed by: Pharmacy Medications reviewed in ED?: No Medication History completed: Yes Patient Interview: Completed Secondary Source(s): Pharmacy records and Insurance records [facility] Statement: As the person ultimately responsible for medication therapy, providers are able to order a medication from an existing home medication list in [facility] via the "Reconcile Routine" prior to Confirmation of that medication by senior support analyst. Such practice is discouraged except when the physician, in their clinical judgment, deems that a medical need exists for a medication without regard to previous use.
[2024-10-16] MEDS ORDERED: diazePAM 5 MG TABLET PO PRN (11:46)
[2024-10-16] MEDS ORDERED: ONDANSETRON ODT 4 MG TABLET TL PRN (14:04)
[2024-10-16] MEDS: SODIUM CHLORIDE FLUSH 0.9% 10 ML SYRINGE IVP PRN (14:14)
[2024-10-16] MEDS: ONDANSETRON 4 MG/2 ML VIAL IVP PRN (14:14)
[2024-10-16] MEDS: methocarbamoL 500 MG TABLET PO SCH (21:44)
[2024-10-17 06:22] LABS: BASOPHILS % (AUTO) 0.5 %; EOSINOPHILS # (AUTO) 0.3 10^3/uL (0.0-0.7); EOSINOPHILS % (AUTO) 3.2 %; HCT - HEMATOCRIT 42.2 % (42.0-52.0); HGB - HEMOGLOBIN 13.3 g/dL (14.0-18.0); LYMPHOCYTES # (AUTO) 1.3 10^3/uL (1.5-3.5); LYMPHOCYTES % (AUTO) 14.7 %; MEAN CORPUSCULAR HEMOGLOBIN 30.9 pg (27.0-31.0); MEAN CORPUSCULAR HGB CONC 31.5 g/dL (32.0-36.0); MEAN CORPUSCULAR VOLUME 97.9 fL (80.0-94.0); MEAN PLATELET VOLUME 9.3 fL (7.4-11.4); MONOCYTES # (AUTO) 0.7 10^3/uL (0.0-1.0); MONOCYTES % (AUTO) 7.9 %; NEUTROPHILS # (AUTO) 6.2 10^3/uL (1.5-6.6); NEUTROPHILS % (AUTO) 72.4 %; PLT - PLATELET COUNT 239 10^3/uL (130-450); RED BLOOD COUNT 4.31 10^6/uL (4.70-6.10); RED CELL DISTRIBUTION WIDTH 13.7 % (12.0-15.0); WHITE BLOOD COUNT 8.5 x10^3/uL (4.8-10.8)
[2024-10-17 06:39] LABS: CALCIUM 8.3 mg/dL (8.5-10.3); CREATININE 1.1 mg/dL (0.6-1.3); POTASSIUM 4.1 mmol/L (3.5-4.5)
[2024-10-17] MEDS: AZITHROMYCIN INJ 500 MG in SODIUM CHLORIDE 0.9% 250 ML IV SCH (08:50)
[2024-10-17] MEDS: CETIRIZINE 10 MG TABLET PO SCH (08:52)
[2024-10-17] MEDS: cefTRIAXone 1 GM VIAL IVP SCH (08:52)
[2024-10-17] MEDS: predniSONE 20 MG TABLET PO SCH (12:01)
--- NOTE | 2024-10-17 12:41 | PROVIDER PROGRESS NOTE ---
Subjective Subjective Subjective: Today, patient states he feels better. He still having some coughing fits but not coughing up any sputum. He denies any fevers or chills. He is anxious to go home. He does not use oxygen at home, and here he is requiring between 1 to 2 L. He has some intermittent wheezing noted. Current Medications Current Medications Current Medications: Current Medications Generic Name Dose Route Start Last Admin Trade Name Freq PRN Reason Stop Dose Admin Acetaminophen 650 mg 10/16/24 06:27 10/17/24 00:13 Acetaminophen 325 Mg Tablet PO 650 mg Q4HR PRN Administration Pain 1 to 4, or Fever Albuterol/Ipratropium 3 ml 10/16/24 11:00 10/17/24 11:32 Ipratropium/Albuterol 3 Ml Neb INH 3 ml RTQID MICHELLE Administration Apixaban 5 mg 10/16/24 09:00 10/17/24 08:49 Apixaban 5 Mg Tablet PO 5 mg BID MICHELLE Administration Atorvastatin Calcium 20 mg 10/16/24 09:00 10/17/24 08:49 Atorvastatin 10 Mg Tablet PO 20 mg DAILY MICHELLE Administration Ceftriaxone Sodium 1 gm 10/17/24 09:00 10/17/24 08:52 Ceftriaxone 1 Gm Vial IVP 1 gm DAILY MICHELLE Administration Cetirizine HCl 10 mg 10/17/24 09:00 10/17/24 08:52 Cetirizine 10 Mg Tablet PO 10 mg DAILY MICHELLE Administration Diazepam 5 mg 10/16/24 11:46 Diazepam 5 Mg Tablet PO HS PRN anxiety Gabapentin 600 mg 10/16/24 21:00 10/17/24 12:01 Gabapentin 300 Mg Capsule PO Not Given BID MICHELLE Azithromycin 500 mg/ Sodium 250 mls @ 250 mls/hr 10/17/24 09:00 10/17/24 08:50 Chloride IV 250 mls/hr DAILY MICHELLE Administration Methocarbamol 750 mg 10/16/24 21:00 10/17/24 08:54 Methocarbamol 500 Mg Tablet PO 750 mg BID MICHELLE Administration Montelukast Sodium 10 mg 10/16/24 09:00 10/17/24 08:54 Montelukast 10 Mg Tablet PO 10 mg DAILY MICHELLE Administration Ondansetron HCl 4 mg 10/16/24 14:04 Ondansetron Odt 4 Mg Tablet TL Q4HR PRN Nausea / Vomiting Ondansetron HCl 4 mg 05/23/25 14:04 10/16/24 14:14 Ondansetron 4 Mg/2 Ml Vial IVP 4 mg Q4HR PRN Administration Nausea / Vomiting Oxycodone HCl 5 mg 10/16/24 06:27 10/16/24 11:38 Oxycodone 5 Mg Tablet PO 5 mg Q4HR PRN Administration Pain 5 to 7 Prednisone 40 mg 10/17/24 12:00 10/17/24 12:01 Prednisone 20 Mg Tablet PO 40 mg DAILYWM MICHELLE Administration Sodium Chloride 10 ml 10/16/24 06:27 10/16/24 14:14 Sodium Chloride Flush 0.9% 10 Ml Syringe IVP 10 ml PRN PRN Administration NEEDED PER PROVIDER ORDERS Sodium Chloride 10 ml 10/16/24 09:00 10/17/24 08:57 Sodium Chloride Flush 0.9% 10 Ml Syringe IVP 10 ml 0100,0900,1700 MICHELLE Administration Objective Vital Signs/Intake & Output Reviewed Vital Signs: Yes Vital Signs: Vital Signs x48h Temp Pulse Pulse Resp BP Pulse Ox O2 Flow Rate 10/17/24 11:32 73 16 1.5 10/17/24 07:59 2 10/17/24 07:53 76 16 2 10/17/24 07:36 97.0 F L 67 18 141/76 H 92 2 10/17/24 05:30 97.9 F 59 L 18 143/65 H 94 Intake & Output: Intake & Output 10/14/24 10/15/24 10/16/24 10/17/24 23:59 23:59 23:59 23:59 Intake Total 1421 / 1421 590 / 590 Output Total 1675 / 1675 700 / 700 Balance -254 / -254 -110 / -110 Weight (kg) 76.839 kg 71.5 kg Objective General Appearance: positive No acute distress and Alert; negative Anxious Eyes Bilateral: positive Normal inspection, PERRL and EOMI ENT: positive ENT inspection nml, Pharynx nml and No signs of dehydration Neck: positive Nml inspection, Thyroid nml and No JVD Respiratory: positive Chest non-tender, No respiratory distress and Other (Mild expiratory wheezing noted, no rales, no crackles, no rhonchi) Cardiovascular: positive No murmur, No gallop and Irregularly irregular Abdomen: positive Non-tender and No organomegaly; negative Guarding, Rebound, Hepatomegaly or Splenomegaly Back: positive Nml inspection; negative CVA tenderness (R) or CVA tenderness (L) Skin: positive Color nml, No rash, Warm and Dry Extremities: positive Non-tender, Full ROM, Nml appearance and No pedal edema Neurologic/Psychiatric: positive Oriented x3 and Mood/affect nml Lab Results 10/17/24 06:00 10/17/24 06:00 Other Labs: Lab Results x24hrs 10/17/24 Range/Units 06:00 WBC 8.5 (4.8-10.8) x10^3/uL RBC 4.31 L (4.70-6.10) 10^6/uL Hgb 13.3 L (14.0-18.0) g/dL Hct 42.2 (42.0-52.0) % MCV 97.9 H (80.0-94.0) fL MCH 30.9 (27.0-31.0) pg MCHC 31.5 L (32.0-36.0) g/dL RDW 13.7 (12.0-15.0) % Plt Count 239 (130-450) 10^3/uL MPV 9.3 (7.4-11.4) fL Neut # (Auto) 6.2 (1.5-6.6) 10^3/uL Lymph # (Auto) 1.3 L (1.5-3.5) 10^3/uL [place] # (Auto) 0.7 (0.0-1.0) 10^3/uL Eos # (Auto) 0.3 (0.0-0.7) 10^3/uL Baso # (Auto) 0.0 (0.0-0.1) 10^3/uL Absolute Nucleated RBC 0.00 x10^3/uL Nucleated RBC % 0.0 /100WBC Sodium 139 (135-145) mmol/L Potassium 4.1 (3.5-4.5) mmol/L Chloride 106 (101-111) mmol/L Carbon Dioxide 28 (21-32) mmol/L Anion Gap 5.0 L (6-13) BUN 16 (6-20) mg/dL Creatinine 1.1 (0.6-1.3) mg/dL Estimated GFR (MDRD) 64 L (>89) Glucose 112 H (74-104) mg/dL Calcium 8.3 L (8.5-10.3) mg/dL Sepsis Event Note (H) Evaluation Current Stage of Sepsis: Ruled out Assessment/Plan Problem List (1) Pneumonia: Impression: Patient presented with fevers and chills at home, as well as a cough. Chest x-ray shows right lower lobe opacity, concerning for pneumonia. Continue IV Rocephin and azithromycin at this time. Patient still requiring 1.5 L of oxygen. Maintain oxygen saturations between 88 to 92% with long history of COPD. If able to wean off oxygen, may be able to discharge home later today. Continue to monitor. Qualifiers: Laterality: right Lung location: lower lobe of lung Pneumonia type: d ue to unspecified organism Qualified Code(s): J18.9 - Pneumonia, unspecified organism (2) Acute respiratory failure with hypoxia: Impression: Patient still requiring 1 to 2 L of oxygen. Continue to wean off. Continue Rocephin and azithromycin as mentioned above. Continue scheduled DuoNebs RT 4 times daily. Started oral prednisone today for some mild expiratory wheezing noted. Will continue with 5-day course. (3) COPD (chronic obstructive pulmonary disease): Impression: Management as above. Qualifiers: COPD type: COPD with acute lower respiratory infection Qualified Code(s): J44.0 - Chronic obstructive pulmonary disease with (acute) lower respiratory infection (4) Hypertension: Impression: Patient not currently on any medications. Normotensive. Continue to monitor. Qualifiers: Hypertension type: essential hypertension Qualified Code(s): I10 - Essential (primary) hypertension (5) Atrial fibrillation: Impression: Continue Eliquis. Qualifiers: Atrial fibrillation type: paroxysmal Qualified Code(s): I48.0 - Paroxysmal atrial fibrillation (6) GARRICK (obstructive sleep apnea): Impression: Continue home CPAP machine.
--- NOTE | 2024-10-17 13:46 | Discharge Summary ---
"Discharge Summary Admit Date: 10/16/24 Discharge Date: 10/18/24 Discharging Provider: Dr. Bryn Russell Primary Care Provider: Chevy Nazario Code Status: Attempt Resuscitation Discharge Facility Name: Home DIAGNOSES Admission Diagnoses: Pneumonia Acute respiratory failure with hypoxia COPD Hypertension Atrial fibrillation GARRICK Discharge Diagnoses with Status of Each Condition: Pneumoniacontinue Augmentin and azithromycin at home to complete 3 day course of azithromycin and 5 day course of Augmentin (switched from Rocephin). Acute respiratory failure with hypoxiaoxygen was weaned off. Complete 5-day course of prednisone. COPDmanagement as above, continue home inhalers. Hypertensioncontinue to monitor. Atrial fibrillationcontinue Eliquis OSAcontinue home CPAP machine. HPI History of Present Illness: Per Dr. Vasquez: Patient with a history of hypertension, copd, garrick presented to the Ed with cough and shortness of breath x 3 days. patient had productive cough and reported fevers. He was noted to be hypoxic on room air, he does not use oxygen at home. Patient workup was consistent with RLL pneumonia. I will admit for further management of acute respiratory failure and pneumonia I performed this visit using real-time tele-health tools, including live-video and telephone. patient provided verbal consent to perform this visit using the tele-health modalities available. At the time of this visit, the patient was located at [facility] in the [facility], I was located in [place]. patient's daughter Katja was also at bedside during the vist. CONSULTS | PROCEDURES Consultations: RT Procedures: Chest x-ray HOSPITAL COURSE Hospital Course: Patient is a 83-year-old male with a history of COPD who presented with cough, fevers, shortness of breath. Chest x-ray showed right lower lobe pneumonia. He was started on IV Rocephin and azithromycin. He was also started on prednisone and scheduled DuoNeb treatments. His oxygen was slowly weaned off. He will complete a course of his antibiotics at home, as well as a 5-day course of prednisone. He was advised to follow-up closely with his primary care provider, his truck driver rubbish collector, etc. This information was also relayed to his daughter at bedside. ALLERGIES Allergies Allergy/AdvReac Type Severity Reaction Status Date / Time latex Allergy Unknown Verified 09/15/23 10:49 Sulfa (Sulfonamide Allergy Unknown Verified 09/15/23 10:49 Antibiotics) MEDICATIONS Ambulatory Orders Medication Instructions Recorded Confirmed diphenhydramine HCl 25 mg capsule 50 mg PO HS 05/30/20 10/16/24 (Banophen) methocarbamol 750 mg tablet 750 mg PO BID 05/30/20 (Robaxin-750) montelukast 10 mg tablet 10 mg PO DAILY 05/30/2009/25 omeprazole magnesium 20 mg 20 mg PO DAILY 05/30/20 capsule,delayed release simvastatin 40 mg tablet (Zocor) 40 mg PO QPM 05/30/20 10/16/24 albuterol sulfate 90 mcg/actuation 90 mcg inhalation Q 4HR PRN 09/02/23 10/16/24 breath activated powder Shortness Of Air/Wheezing inhaler,sensor (Proair Digihaler) apixaban 5 mg tablet (Eliquis) 5 mg PO BID 09/02/23 azelastine 205.5 mcg (0.15 %) 1 spray intranasal HS 10/16/24 nasal spray dextromethorphan-guaifenesin 30 1 ea PO BID 09/02/23 0 10/16/24 mg-600 mg tablet extended [id number] hr (Mucinex DM) oxycodone-acetaminophen 5 mg-325 1 ea PO HS Pain 5-7 0 09/02/23 10/16/24 mg tablet cetirizine 10 mg tablet 10 mg PO DAILY 10/16/2409/25 diazepam 5 mg tablet 5 mg PO HS PRN anxiety 10/1610/16/24 fluticasone propionate 50 2 spray intranasal DAILY 10/16/24 mcg/actuation nasal spray,suspension (24 Hour Allergy Relief) gabapentin 600 mg tablet 600 mg PO BID 10/16/2410/16 tiotropium 2.5 mcg-olodaterol 2.5 2 inh inhalation MALENA LY 10/16/24 10/16/24 mcg/actuation mist for inhalation (Stiolto Respimat) amoxicillin 875 mg-potassium 1 tab PO BID 2 days #4 ta bs 10/18/24 clavulanate 125 mg tablet prednisone 20 mg tablet 40 mg (2 x 20 mg) PO DAILYWM 4 10/18/24 days #8 tabs PHYSICAL EXAM AT DISCHARGE Vital Signs: Vital Signs x48h Temp Pulse Pulse Resp BP Pulse Ox O2 Flow Rate 10/18/24 11:51 71 16 10/18/24 09:02 73 17 10/18/24 07:51 97.3 F L 63 19 156/88 H 91 L 1 General Appearance: positive No acute distress and Alert; negative Anxious Eyes Bilateral: positive Normal inspection, PERRL and EOMI ENT: positive ENT inspection nml, Pharynx nml and No signs of dehydration Neck: positive Nml inspection, Thyroid nml, No JVD and Trachea midline Respiratory: positive Chest non-tender, No respiratory distress and Breath sounds nml Cardiovascular: positive No murmur, No gallop and Irregularly irregular; negative Tachycardia Peripheral Pulses: positive 2+ Abdomen: positive Non-tender, No organomegaly, Nml bowel sounds and No distention Back: positive Nml inspection; negative CVA tenderness (R) or CVA tenderness (L) Skin: positive Color nml, No rash, Warm and Dry Extremities: positive Non-tender, Full ROM, Nml appearance and No pedal edema Neurologic/Psychiatric: positive Oriented x3 and Mood/affect nml LABS 10/17/24 06:00 10/17/24 06:00 DIAGNOSTIC IMAGING Diagnostic Imaging Results: Final report reviewed FOLLOW UP Follow Up: Follow up with PCP. Follow up with truck driver rubbish collector. TIME SPENT Time Spent in Discharge (Minutes): 35 Discharge Plan Discharge Patient Disposition: 01 Home, Self Care Condition: Good Prescriptions: New prednisone 20 mg Tablet 40 mg PO DAILYWM 4 Days Qty: 8 0RF amoxicillin-pot clavulanate 875-125 mg tablet 1 tab PO BID 2 Days Qty: 4 0RF Continued simvastatin [Zocor] 40 MG tablet 40 mg PO QPM methocarbamol [Robaxin-750] 750 MG tablet 750 mg PO BID diphenhydramine HCl [Banophen] 25 MG capsule 50 mg PO HS montelukast 10 MG tablet 10 mg PO DAILY omeprazole magnesium 20 MG capsule,delayed release(DR/EC) 20 mg PO DAILY oxycodone-acetaminophen 1 EACH tablet 1 ea PO HS Mucinex DM 1 EACH tablet extended release 12 hr 1 ea PO BID azelastine 205.5 MCG/0.137 ML spray,non-aerosol 1 spray intranasal HS Patient Comments: Currently takes once a day @ bedtime. Eliquis 5 MG tablet 5 mg PO BID Proair Digihaler 90 MCG aero powdr breath act w/sensor 90 mcg inhalation Q4HR PRN (Reason: Shortness Of Air/Wheezing) Patient Comments: using at least twice a day diazepam 5 mg tablet 5 mg PO HS PRN (Reason: anxiety) gabapentin 600 mg tablet 600 mg PO BID fluticasone propionate [24 Hour Allergy Relief] 50 mcg/actuation spray,suspension 2 spray intranasal DAILY Rx Instructions: administer into each nostril cetirizine 10 mg tablet 10 mg PO DAILY Stiolto Respimat 2.5-2.5 mcg/actuation mist 2 inh inhalation DAILY Activity Restrictions: Activity as Tolerated Health Concerns: You came in because you are having shortness of breath, cough, fevers and chills at home. You are found to have a right lower lobe pneumonia. We started you on IV antibiotics. You were requiring some oxygen to keep your oxygen levels where they are, and we weaned them off safely. I would like you to finish your antibiotic course, as well as a steroid course at home. We are glad you are feeling better, thank you for allowing us to take care of you. Print Language: [place] Patient Instructions: ED Pneumonia Adult Stand Alone Forms: PCP List Follow-up Care: Chevy Nazario MD [Primary Care Provider] -"
[2024-10-17] MEDS: PANTOPRAZOLE 40 MG TABLET PO SCH (15:30)
[2024-10-17] MEDS: BENZOCAINE/MENTHOL LOZENGE MM PRN (21:05)
[2024-10-17] MEDS: BENZONATATE 100 MG CAPSULE PO PRN (21:58)
--- NOTE | 2024-10-18 09:52 | Discharge Summary ---
Discharge Summary ALLERGIES Allergies Allergy/AdvReac Type Severity Reaction Status Date / Time latex Allergy Unknown Verified 09/15/23 10:49 Sulfa (Sulfonamide Allergy Unknown Verified 09/15/23 10:49 Antibiotics) MEDICATIONS Ambulatory Orders Medication Instructions Recorded Confirmed diphenhydramine HCl 25 mg capsule 50 mg PO HS 05/30/20 10/16/24 (Banophen) methocarbamol 750 mg tablet 750 mg PO BID 05/30/20 (Robaxin-750) montelukast 10 mg tablet 10 mg PO DAILY 05/30/2009/25 omeprazole magnesium 20 mg 20 mg PO DAILY 05/30/20 capsule,delayed release simvastatin 40 mg tablet (Zocor) 40 mg PO QPM 05/30/20 10/16/24 albuterol sulfate 90 mcg/actuation 90 mcg inhalation Q 4HR PRN 09/02/23 10/16/24 breath activated powder Shortness Of Air/Wheezing inhaler,sensor (Proair Digihaler) apixaban 5 mg tablet (Eliquis) 5 mg PO BID 09/02/23 azelastine 205.5 mcg (0.15 %) 1 spray intranasal HS 10/16/24 nasal spray dextromethorphan-guaifenesin 30 1 ea PO BID 09/02/23 0 10/16/24 mg-600 mg tablet extended [id number] hr (Mucinex DM) oxycodone-acetaminophen 5 mg-325 1 ea PO HS Pain 5-7 0 09/02/23 10/16/24 mg tablet cetirizine 10 mg tablet 10 mg PO DAILY 10/16/2409/25 diazepam 5 mg tablet 5 mg PO HS PRN anxiety 10/1610/16/24 fluticasone propionate 50 2 spray intranasal DAILY 10/16/24 mcg/actuation nasal spray,suspension (24 Hour Allergy Relief) gabapentin 600 mg tablet 600 mg PO BID 10/16/2410/16 tiotropium 2.5 mcg-olodaterol 2.5 2 inh inhalation MALENA LY 10/16/24 10/16/24 mcg/actuation mist for inhalation (Stiolto Respimat) PHYSICAL EXAM AT DISCHARGE Vital Signs: Vital Signs x48h Temp Pulse Pulse Resp BP Pulse Ox O2 Flow Rate 10/18/24 09:02 73 17 10/18/24 07:51 97.3 F L 63 19 156/88 H 91 L 1 10/18/24 05:00 97.9 F 73 20 141/73 H 94 LABS 10/17/24 06:00 10/17/24 06:00 SEPSIS Current Stage of Sepsis: Ruled out Discharge Plan Discharge Condition: Good Prescriptions: Continued simvastatin [Zocor] 40 MG tablet 40 mg PO QPM methocarbamol [Robaxin-750] 750 MG tablet 750 mg PO BID diphenhydramine HCl [Banophen] 25 MG capsule 50 mg PO HS montelukast 10 MG tablet 10 mg PO DAILY omeprazole magnesium 20 MG capsule,delayed release(DR/EC) 20 mg PO DAILY oxycodone-acetaminophen 1 EACH tablet 1 ea PO HS Mucinex DM 1 EACH tablet extended release 12 hr 1 ea PO BID azelastine 205.5 MCG/0.137 ML spray,non-aerosol 1 spray intranasal HS Patient Comments: Currently takes once a day @ bedtime. Eliquis 5 MG tablet 5 mg PO BID Proair Digihaler 90 MCG aero powdr breath act w/sensor 90 mcg inhalation Q4HR PRN (Reason: Shortness Of Air/Wheezing) Patient Comments: using at least twice a day diazepam 5 mg tablet 5 mg PO HS PRN (Reason: anxiety) gabapentin 600 mg tablet 600 mg PO BID fluticasone propionate [24 Hour Allergy Relief] 50 mcg/actuation spray,suspension 2 spray intranasal DAILY Rx Instructions: administer into each nostril cetirizine 10 mg tablet 10 mg PO DAILY Stiolto Respimat 2.5-2.5 mcg/actuation mist 2 inh inhalation DAILY Activity Restrictions: Activity as Tolerated Health Concerns: You came in because you are having shortness of breath, cough, fevers and chills at home. You are found to have a right lower lobe pneumonia. We started you on IV antibiotics. You were requiring some oxygen to keep your oxygen levels where they are, and we weaned them off safely. I would like you to finish your antibiotic course, as well as a steroid course at home. We are glad you are feeling better, thank you for allowing us to take care of you. Print Language: Indonesian Patient Instructions: ED Pneumonia Adult Stand Alone Forms: PCP List Follow-up Care: Chevy Nazario MD [Primary Care Provider] -
[2024-10-18 14:59] VITALS: BP 131/69; TEMP 97.7; O2SAT 94
== END 2024-10-18 13:05 | disposition home or self-care (01) | DRG 189 ==
LOC: MS2 23:27 → ED 23:27 → MS2 10-16 06:34
PROVIDERS: ADMIT Hospitalist; ATTEND Hospitalist
DX: J96.01 Acute respiratory failure with hypoxia; Z79.01 Long term (current) use of anticoagulants; I48.0 Paroxysmal atrial fibrillation; J90 Pleural effusion, not elsewhere classified; J44.0 Chronic obstructive pulmonary disease with (acute) lower respiratory infection; R53.1 Weakness; G47.33 Obstructive sleep apnea (adult) (pediatric); J18.9 Pneumonia, unspecified organism; I10 Essential (primary) hypertension; Z87.891 Personal history of nicotine dependence